=== PATIENT | female | born 1935 | race Caucasian/White ===

== ENCOUNTER 2019-06-19 00:35 | Inpatient (IN) | payer MEDICARE, OTHER, SELFPAY ==
[2019-06-20] VITALS (18 sets, daily range): BP systolic 96–125; BP diastolic 55–62; PULSE 74–102; RESP 14–22; TEMP 36.4–36.6; O2SAT 92–98
[2019-06-20] MEDS: cefTRIAXone 1,000 MG in sodium chloride 0.9% (plus) 50 ML 100 MG IV (02:29)
[2019-06-20] MEDS: ipratropium-albuterol 3 mL Neb INHALATION ×5 (04:01→23:53)
[2019-06-20 05:30] LABS: Add RBC Morph No
[2019-06-20 05:36] LABS: Basophils % 0.1 %; Hematocrit 26.2 % (37.0-47.0); Hemoglobin 7.8 g/dL (11.5-15.3); Lymphocytes # 0.4 10^3/uL (0.8-4.8); Lymphocytes % 2.7 %; Mean Corpuscular HGB Conc 29.8 g/dL (30.0-36.0); Mean Corpuscular Hemoglobin 25.7 pg (28.0-34.0); Mean Corpuscular Volume 86.5 fL (81-99); Mean Platelet Volume 10.3 fL (7.4-10.4); Monocytes # 0.3 10^3/uL (0.2-0.9); Monocytes % 2.2 %; Neutrophils # 12.8 10^3/uL (1.8-7.7); Nucleated Red Blood Cells % 0 %; Platelet Count 248 10^3/cmm (130-400); Red Blood Count 3.03 10^6/uL (4.1-5.3); Red Cell Distribution Width 14.3 % (12.1-15.1); White Blood Count 13.6 10^3/uL (4.0-10.0)
[2019-06-20 05:47] LABS: Alanine Aminotransferase 6 U/L (0-33); Albumin Level 3.5 g/dL (3.5-5.2); Alkaline Phosphatase 83 IU/L (35-105); Anion Gap 12.4 (5-19); Aspartate Amino Transferase 11 U/L (0-32); Blood Urea Nitrogen 31 mg/dL (8-23); Calcium 9.4 mg/Dl (8.8-10.2); Carbon Dioxide 35 mmol/L (22-29); Chloride 95 mmol/L (98-107); Globulin 2.3 g/dL (1.3-4.6); Glucose 149 mg/dL (74-106); Potassium 3.4 mmol/L (3.5-5.1); Sodium 139 mmol/L (136-145); Total Bilirubin 0.2 mg/dL (0.15-1.2); Total Protein 5.8 g/dL (6.6-8.7)
--- NOTE | 2019-06-20 08:02 | PM.PN ---
Subjective Subjective: Interval history: Overall patient seems to be feeling little better. No chest pain. Little decrease shortness of breath. Still coughing up some thick sputum. Medications: Reviewed: Yes Vitals/I&O/Wt Last Vital Signs Temp 97.9 F 06/20/19 03:10 Pulse 89 06/20/19 04:02 Resp 16 06/20/19 04:02 BP 96/55 06/20/19 03:10 Pulse Ox 93 06/20/19 04:02 06/19/19 06/20/19 06/20/19 22:59 06:59 14:59 Intake Total 50 / 50 Output Total 400 / 400 250 / 250 Balance -350 / -350 -250 / -250 Weight last 48 hrs Weight 57.733 kg Physical Exam Narrative: EXAM NARRATIVE: General: No acute distress. Alert. Heart: Regular rate and rhythm no new murmurs, rubs or gallops Lungs: Equal breath sounds bilaterally. Some mild expiratory wheezes. Occasional rhonchi. Abdomen: Positive bowel sounds. Nontender. Nondistended. No hepatosplenomegaly. No guarding. Extremities: No clubbing cyanosis or edema. Negative Homans Data Labs: Other Labs: All Labs last 24 hrs except CBC/BMP 06/18/19 06/19/19 06/20/19 00:36 00:54 04:55 RBC 3.03 L MCV 86.5 MCH 25.7 L MCHC 29.8 L RDW 14.3 MPV 10.3 Neut % (Auto) 94.0 Lymph % (Auto) 2.7 Banks % (Auto) 2.2 Eos % (Auto) 0.0 Baso % (Auto) 0.1 Neut # (Auto) 12.8 H Lymph # (Auto) 0.4 L Banks # (Auto) 0.3 Eos # (Auto) 0.0 Baso # (Auto) 0.0 Nucleated RBC % (a uto) 0 Nucleated RBCs # 0.0 Specimen Type ARTERIAL Sample Site LEFT RADIAL ABG pH 7.39 ABG pCO2 58.9 H ABG pO2 59.6 L ABG HCO3 35.9 H ABG Base Excess 9.6 H Marshal Test P Hematocrit 25.6 L O2 Delivery Device NC O2 Liters/Min 6.0 Specimen Drawn By HARKR Calcium Total Bilirubin AST ALT Alkaline Phosphata se Total Protein Albumin Globulin Influenza Type A A g NEGATIVE Influenza Type B A g NEGATIVE 06/20/19 04:55 RBC MCV MCH MCHC RDW MPV Neut % (Auto) Lymph % (Auto) Banks % (Auto) Eos % (Auto) Baso % (Auto) Neut # (Auto) Lymph # (Auto) Banks # (Auto) Eos # (Auto) Baso # (Auto) Nucleated RBC % (a uto) Nucleated RBCs # Specimen Type Sample Site ABG pH ABG pCO2 ABG pO2 ABG HCO3 ABG Base Excess Marshal Test Hematocrit O2 Delivery Device O2 Liters/Min Specimen Drawn By Calcium 9.4 Total Bilirubin 0.2 AST 11 ALT 6 Alkaline Phosphata se 83 Total Protein 5.8 L Albumin 3.5 Globulin 2.3 Influenza Type A A g Influenza Type B A g A&P Assessment and plan (1) Community acquired pneumonia: Patient seems to be improving. We will continue IV antibiotics for now. Repeat labs in the morning. Status: Acute Code(s): J18.9 - Pneumonia, unspecified organism (2) COPD (chronic obstructive pulmonary disease): Continues to have some wheezing. We will continue with steroids and antibiotics. Continue with breathing treatments. Status: Acute Code(s): J44.9 - Chronic obstructive pulmonary disease, unspecified (3) Anemia: This is chronic for her. Hemoglobin is dropped down to 7.8 though. Relatively asymptomatic. Continue to monitor. Hold off on anticoagulation. Status: Acute Code(s): D64.9 - Anemia, unspecified Attestations Medical Necessity Statement*: Patient is an 83-year-old female with pneumonia and COPD requiring continued inpatient monitoring and treatment with IV treatments.. Coding Level of Care Code Acute Parking Lot Laborer for [facility] Diagnoses Community acquired pneumonia J18.9 COPD (chronic obstructive pulmonary disease) J44.9 Anemia D64.9
[2019-06-20] MEDS: ferrous sulfate EC 325 mg Tablet PO ×3 (09:36→17:03)
[2019-06-20] MEDS: FUROsemide 10 mg/mL SDV 4mL 40 MG IVP ×2 (09:36→16:56)
[2019-06-20] MEDS: pantoprazole DR 40 mg Tablet PO (09:37)
[2019-06-20] MEDS: cholecalciferol (vitamin D3) 1,000 unit Tablet 1000 UNIT PO (09:37)
[2019-06-20] MEDS: metoprolol tartrate 25 mg Tablet PO ×2 (09:37→17:03)
[2019-06-20] MEDS: guaiFENesin 600 mg Tablet 1200 MG PO ×2 (09:37→17:02)
[2019-06-20] MEDS: cetirizine 10 mg Tablet PO (09:37)
[2019-06-20] MEDS: dilTIAZem ER (24HR) 120 mg Capsule PO (09:38)
[2019-06-20] MEDS: azithromycin 500 MG in sodium chloride 0.9% 250 ML 250 MG IV (09:46)
[2019-06-20] MEDS: fluticasone nasal spray 16gm Btl 2 SPRAY NASAL (09:46)
--- NOTE | 2019-06-20 13:17 | PC.CHAP ---
Pastoral Care Encounter/Spiritual Assessment Type of Contact [] Declined backhoe operator visit [x] Patient/Family/Request visit [] Outpatient visit [] Follow-up visit [] Physician referral [] Code/Alert [x] Routine visit [] Staff referral [] Actively dying [] Patient sleeping [] Family support [] [] Out of room [] Palliative care [] [] Receiving care in room [] Pre-surgical visit [] Trauma [] Long length of stay [] ICU visit [x] Other:2 family members Relational/Emotional Strength [x] Patient feels connected with others/family/visitors/staff [] Distress [] Loneliness/isolation [] Abandonment Spirituality of Patient [x] Person of Sabiha [x] Attends Sabianist of their Sabiha [] Believes in Prayer [] Reads Bible or Buddhist materials [] There are Spiritual issues to be addressed Graduate Student Instructor Interventions [x] Prayer [x] Active listening [x] Non-anxious presence [x] Spiritual/emotional support [] Crisis/trauma care [] Spiritual counseling [] Bereavement support [] Provided bereavement packet [] Provided Bible/devotional materials [] Provided toy/stuffed animal, coloring book to patient or family member [x] Completed spiritual assessment [] Provided Communion [] Anointing/[place] [] Salvation [] Other: Impact on Illness or Injury [] Angry [] Fearful [] Anxious [] Often cries x Exhaustion [] Unable to work [] Unable to attend restorationist [] Unable to walk/stand [] Unable to read [] Unable to drive [] Unable to eat/drink [] Unable to sleep [] Unable to be with family [] Other: Summary has no probems ready to go home Time spent with patient 8 min
[2019-06-21] VITALS (19 sets, daily range): BP systolic 98–142; BP diastolic 51–68; PULSE 80–100; RESP 14–24; TEMP 36.3–36.8; O2SAT 88–99
[2019-06-21] MEDS: FUROsemide 10 mg/mL SDV 4mL 40 MG IVP (00:07)
[2019-06-21] MEDS: cefTRIAXone 1,000 MG in sodium chloride 0.9% (plus) 50 ML 100 MG IV (00:18)
[2019-06-21] MEDS: cefTRIAXone 1,000 mg SDV 1000 MG (00:30)
[2019-06-21] MEDS: ipratropium-albuterol 3 mL Neb INHALATION ×4 (02:48→23:27)
--- NOTE | 2019-06-21 06:55 | XR_ITS ---
WS: [id number] PROCEDURE: XR chest 2V* 16115 CLINICAL INFORMATION: pneumonia COMPARISON: FINDINGS: Heart: Cardiomegaly. Aortic calcification. Tortuous thoracic aorta. Lungs: Chronic emphysematous changes. Stable interstitial fibrosis in both lungs. Small right pleural effusion slightly increased since June 19, 2019. No focal pneumonia. Bones: Osteopenia. Thoracic kyphosis. Aortic calcification. XR/XR chest 2V* 14281 IMPRESSION: 1. Stable chronic interstitial fibrosis. 2. Small right pleural effusion increased from June 19, 2019. 3. No focal pneumonia. 4. Stable cardiomegaly.
--- NOTE | 2019-06-21 07:00 | PM.PN ---
Subjective Subjective: Interval history: Overall she does not feel like she is improving much. Still coughing up a lot of sputum. Very thick. No fevers though. No chest pain. Vitals/I&O/Wt Last Vital Signs Temp 98.3 F 06/21/19 04:00 Pulse 100 06/21/19 04:00 Resp 22 H 06/21/19 04:00 BP 98/51 06/21/19 04:00 Pulse Ox 88 L 06/21/19 04:00 06/20/19 06/21/19 06/21/19 22:59 06:59 14:59 Intake Total 480 / 720 300 / 1020 Output Total 250 / 500 500 / 1000 Balance 230 / 220 -200 / 20 Weight last 48 hrs Weight 57.788 kg Weight 57.733 kg Physical Exam Const: COMMON NORMALS: no apparent distress, alert and well nourished GENERAL APPEARANCE: comfortable HENMT: COMMON NORMALS: normocephalic HEAD & SCALP: normocephalic NOSE: nares normal MOUTH: oral and palatal mucosa normal THROAT: posterior oropharynx normal Resp: COMMON NORMALS: normal respiratory effort and no retractions AUSCULTATION: no crackles, rhonchi and wheezes Cardio: COMMON NORMALS: regular rate, regular rhythm, no gallops, no murmurs and no rub RATE: regular rate RHYTHM: regular rhythm GI: COMMON NORMALS: normal to inspection, nondistended, normoactive bowel sounds, non-tender, no hepatosplenomegaly and no masses PALPATION: Yes no hepatosplenomegaly Extremity: COMMON NORMALS: normal to inspection, normal capillary refill, no clubbing, cyanosis or edema and no calf tenderness Neuro: SENSORIUM/ORIENTATION: Yes alert A&P Assessment and plan (1) Community acquired pneumonia: Not much improvement since yesterday. We will add Mucinex today. Encouraged her use of incentive spirometer and flutter valve. Try to get her up more today. Continue IV antibiotics. Status: Acute Code(s): J18.9 - Pneumonia, unspecified organism (2) COPD (chronic obstructive pulmonary disease): Continues to have some wheezing. We will continue with steroids and antibiotics. Continue with breathing treatments. Status: Acute Code(s): J44.9 - Chronic obstructive pulmonary disease, unspecified (3) Anemia: Acute on chronic. This is chronic for her. Hemoglobin is dropped down to 7.8 though. Relatively asymptomatic. Continue to monitor. Hold off on anticoagulation. Status: Acute Code(s): D64.9 - Anemia, unspecified Attestations Medical Necessity Statement*: Patient has acute medical problems that require continued inpatient IV treatments and monitoring. Coding Level of Care Code Acute Computer Aide [facility] Diagnoses Community acquired pneumonia J18.9 COPD (chronic obstructive pulmonary disease) J44.9 Anemia D64.9
[2019-06-21] MEDS: azithromycin 500 MG in sodium chloride 0.9% 250 ML 250 MG IV (08:28)
[2019-06-21] MEDS: guaiFENesin 600 mg Tablet 1200 MG PO ×2 (08:32→18:00)
[2019-06-21] MEDS: pantoprazole DR 40 mg Tablet PO (08:32)
[2019-06-21] MEDS: cholecalciferol (vitamin D3) 1,000 unit Tablet 1000 UNIT PO (08:32)
[2019-06-21] MEDS: cetirizine 10 mg Tablet PO (08:33)
[2019-06-21] MEDS: ferrous sulfate EC 325 mg Tablet PO ×3 (08:33→18:00)
[2019-06-21] MEDS: metoprolol tartrate 25 mg Tablet PO ×2 (08:33→18:00)
[2019-06-21] MEDS: dilTIAZem ER (24HR) 120 mg Capsule PO (08:33)
[2019-06-21] MEDS: fluticasone nasal spray 16gm Btl 2 SPRAY NASAL (08:34)
[2019-06-21] MEDS: saline nasal spray 44mL Btl 1 SPRAY NASAL (08:34)
[2019-06-21 09:07] LABS: Basophils % 0.2 %; Hematocrit 30.3 % (37.0-47.0); Hemoglobin 8.8 g/dL (11.5-15.3); Lymphocytes # 0.2 10^3/uL (0.8-4.8); Lymphocytes % 1.2 %; Mean Corpuscular Hemoglobin 26.6 pg (28.0-34.0); Mean Corpuscular Volume 91.5 fL (81-99); Mean Platelet Volume 9.9 fL (7.4-10.4); Monocytes # 0.4 10^3/uL (0.2-0.9); Monocytes % 2.2 %; Neutrophils # 15.6 10^3/uL (1.8-7.7); Neutrophils % 93.9 %; Nucleated Red Blood Cells % 0 %; Platelet Count 330 10^3/cmm (130-400); Red Blood Count 3.31 10^6/uL (4.1-5.3); Red Cell Distribution Width 14.7 % (12.1-15.1); White Blood Count 16.7 10^3/uL (4.0-10.0)
[2019-06-21 09:14] LABS: Add RBC Morph No
[2019-06-21 09:40] LABS: Alanine Aminotransferase 5 U/L (0-33); Albumin Level 3.6 g/dL (3.5-5.2); Alkaline Phosphatase 86 IU/L (35-105); Aspartate Amino Transferase 12 U/L (0-32); Blood Urea Nitrogen 31 mg/dL (8-23); Calcium 9.7 mg/Dl (8.8-10.2); Carbon Dioxide 32 mmol/L (22-29); Chloride 94 mmol/L (98-107); Globulin 2.5 g/dL (1.3-4.6); Glucose 218 mg/dL (74-106); Sodium 141 mmol/L (136-145); Total Bilirubin 0.2 mg/dL (0.15-1.2); Total Protein 6.1 g/dL (6.6-8.7)
[2019-06-22] VITALS (16 sets, daily range): BP systolic 126–153; BP diastolic 58–67; PULSE 85–114; RESP 16–20; TEMP 36.4–37.1; O2SAT 88–97; BMI 24.6
[2019-06-22] MEDS: cefTRIAXone 1,000 MG in sodium chloride 0.9% (plus) 50 ML 100 MG IV (00:07)
[2019-06-22] MEDS: FUROsemide 10 mg/mL SDV 4mL 40 MG IVP ×4 (00:07→23:34)
[2019-06-22] MEDS: ipratropium-albuterol 3 mL Neb INHALATION ×4 (04:08→20:06)
[2019-06-22 05:37] LABS: Hematocrit 26.9 % (37.0-47.0); Hemoglobin 7.9 g/dL (11.5-15.3); Lymphocytes # 0.3 10^3/uL (0.8-4.8); Lymphocytes % 2.7 %; Mean Corpuscular HGB Conc 29.4 g/dL (30.0-36.0); Mean Corpuscular Hemoglobin 25.2 pg (28.0-34.0); Mean Corpuscular Volume 85.9 fL (81-99); Mean Platelet Volume 9.8 fL (7.4-10.4); Monocytes # 0.2 10^3/uL (0.2-0.9); Monocytes % 2.2 %; Neutrophils # 8.9 10^3/uL (1.8-7.7); Neutrophils % 91.6 %; Nucleated Red Blood Cells % 0 %; Platelet Count 308 10^3/cmm (130-400); Red Blood Count 3.13 10^6/uL (4.1-5.3); Red Cell Distribution Width 14.9 % (12.1-15.1); White Blood Count 9.7 10^3/uL (4.0-10.0)
[2019-06-22 05:56] LABS: Alanine Aminotransferase 8 U/L (0-33); Albumin Level 3.7 g/dL (3.5-5.2); Alkaline Phosphatase 78 IU/L (35-105); Anion Gap 14.3 (5-19); Aspartate Amino Transferase 10 U/L (0-32); Blood Urea Nitrogen 30 mg/dL (8-23); Calcium 9.5 mg/Dl (8.8-10.2); Carbon Dioxide 36 mmol/L (22-29); Chloride 97 mmol/L (98-107); Globulin 1.9 g/dL (1.3-4.6); Glucose 164 mg/dL (74-106); Potassium 3.3 mmol/L (3.5-5.1); Sodium 144 mmol/L (136-145); Total Bilirubin 0.2 mg/dL (0.15-1.2); Total Protein 5.6 g/dL (6.6-8.7)
[2019-06-22] MEDS: metoprolol tartrate 25 mg Tablet PO ×2 (09:35→18:47)
[2019-06-22] MEDS: cetirizine 10 mg Tablet PO (09:35)
[2019-06-22] MEDS: guaiFENesin 600 mg Tablet 1200 MG PO ×2 (09:35→18:46)
[2019-06-22] MEDS: dilTIAZem ER (24HR) 120 mg Capsule PO (09:35)
[2019-06-22] MEDS: pantoprazole DR 40 mg Tablet PO (09:36)
[2019-06-22] MEDS: cholecalciferol (vitamin D3) 1,000 unit Tablet 1000 UNIT PO (09:36)
[2019-06-22] MEDS: ferrous sulfate EC 325 mg Tablet PO ×3 (09:53→18:46)
[2019-06-22] MEDS: fluticasone nasal spray 16gm Btl 2 SPRAY NASAL (09:54)
[2019-06-22] MEDS: azithromycin 500 MG in sodium chloride 0.9% 250 ML 250 MG IV (10:15)
--- NOTE | 2019-06-22 13:36 | PC.RESP ---
Pt given information for Pulmonary Rehab.
--- NOTE | 2019-06-22 14:25 | PM.PN ---
Subjective Subjective: Interval history: She is improved some since yesterday. Still a bit short of breath and very weak. She is agreeable to going to rehab upon discharge. No fevers or chills. Medications: Reviewed: Yes Vitals/I&O/Wt Last Vital Signs Temp 97.8 F 06/22/19 12:00 Pulse 91 06/22/19 12:00 Resp 18 06/22/19 12:00 BP 129/67 06/22/19 12:00 Pulse Ox 94 06/22/19 12:00 06/21/19 06/22/19 06/22/19 22:59 06:59 14:59 Intake Total 360 / 1570 50 / 1620 600 / 600 Output Total 400 / 400 300 / 700 300 / 300 Balance -40 / 1170 -250 / 920 300 / 300 Weight last 48 hrs Weight 63.049 kg Weight 63.321 kg Weight 57.788 kg Physical Exam Narrative: EXAM NARRATIVE: General: No acute distress. Alert. Heart: Regular rate and rhythm no new murmurs, rubs or gallops Lungs: Equal breath sounds bilaterally. Some mild expiratory wheezes. Occasional rhonchi. Abdomen: Positive bowel sounds. Nontender. Nondistended. No hepatosplenomegaly. No guarding. Extremities: No clubbing cyanosis or edema. Negative Homans A&P Assessment and plan (1) Community acquired pneumonia: Some but overall not much improvement since yesterday. Continue with IV antibiotics and IV steroids. Anticipate another couple of days with IV treatments. We will plan for discharge to rehab when she is ready. Status: Acute Code(s): J18.9 - Pneumonia, unspecified organism (2) COPD (chronic obstructive pulmonary disease): Continues to have some wheezing. We will continue with steroids and antibiotics. Continue with breathing treatments. Status: Acute Code(s): J44.9 - Chronic obstructive pulmonary disease, unspecified (3) Anemia: Acute on chronic. This is chronic for her. Hemoglobin is dropped down to 7.8 though. Relatively asymptomatic. Continue to monitor. Hold off on anticoagulation. Status: Acute Code(s): D64.9 - Anemia, unspecified Attestations Medical Necessity Statement*: Patient has pneumonia and COPD requiring inpatient IV treatments and monitoring. Coding Level of Care Code Acute Restorative Art Embalmer for [facility] Iesha Diagnoses Community acquired pneumonia J18.9 COPD (chronic obstructive pulmonary disease) J44.9 Anemia D64.9
[2019-06-22] MEDS: cefTRIAXone 1,000 MG in sodium chloride 0.9% (plus) 50 ML 50 MG IV (23:41)
[2019-06-23] VITALS (17 sets, daily range): BP systolic 133–153; BP diastolic 61–71; PULSE 82–95; RESP 14–19; TEMP 36.6–36.9; O2SAT 90–98; BMI 24.6
[2019-06-23] MEDS: ipratropium-albuterol 3 mL Neb INHALATION ×6 (00:18→20:09)
[2019-06-23] MEDS: FUROsemide 10 mg/mL SDV 4mL 40 MG IVP (07:07)
[2019-06-23] MEDS: guaiFENesin 600 mg Tablet 1200 MG PO ×2 (08:27→17:48)
[2019-06-23] MEDS: cholecalciferol (vitamin D3) 1,000 unit Tablet 1000 UNIT PO (08:27)
[2019-06-23] MEDS: pantoprazole DR 40 mg Tablet PO (08:28)
[2019-06-23] MEDS: metoprolol tartrate 25 mg Tablet PO ×2 (08:28→17:49)
[2019-06-23] MEDS: dilTIAZem ER (24HR) 120 mg Capsule PO (08:29)
[2019-06-23] MEDS: cetirizine 10 mg Tablet PO (08:29)
[2019-06-23] MEDS: ferrous sulfate EC 325 mg Tablet PO ×3 (08:29→17:48)
[2019-06-23] MEDS: azithromycin 500 MG in sodium chloride 0.9% 250 ML 250 MG IV (08:40)
[2019-06-23] MEDS: fluticasone nasal spray 16gm Btl 2 SPRAY NASAL (08:41)
--- NOTE | 2019-06-23 13:28 | PM.PN ---
Subjective Subjective: Interval history: Michelle reports that she feels a little bit better. Is willing to go to rehabilitation. Still coughing. Medications: Reviewed: Yes Vitals/I&O/Wt Last Vital Signs Temp 97.8 F 06/23/19 07:58 Pulse 84 06/23/19 11:12 Resp 18 06/23/19 11:07 BP 143/70 06/23/19 07:58 Pulse Ox 91 06/23/19 11:07 06/22/19 06/23/19 06/23/19 22:59 06:59 14:59 Intake Total 240 / 840 300 / 1140 850 / 850 Output Total 900 / 1200 300 / 1500 575 / 575 Balance -660 / -360 0 / -360 275 / 275 Weight last 48 hrs Weight 63.049 kg Weight 63.049 kg Physical Exam Narrative: EXAM NARRATIVE: General exam is a weak appearing white female in no apparent distress Cardiovascular regular rate and rhythm with a 2/6 systolic murmur Lungs a few bibasilar expiratory wheezes and rhonchi Abdomen is soft with positive bowel sounds Extremities no cyanosis clubbing or edema A&P Assessment and plan (1) Community acquired pneumonia: Improving. Will need rehab on discharge. Continue Rocephin and azithromycin Status: Acute Code(s): J18.9 - Pneumonia, unspecified organism (2) COPD (chronic obstructive pulmonary disease): Improving. Continue nebulized treatments. Reduce steroids. Appears to have some fibrosis on x-ray as well. Status: Acute Code(s): J44.9 - Chronic obstructive pulmonary disease, unspecified (3) Anemia: Chronic. Repeat hemoglobin tomorrow . No anticoagulation secondary to anemia Status: Acute Code(s): D64.9 - Anemia, unspecified (4) Hypertension: Stable Status: Acute Code(s): I10 - Essential (primary) hypertension (5) Peripheral vascular disease: Stable Status: Acute Code(s): I73.9 - Peripheral vascular disease, unspecified Additional A&P Information Additional A&P Information: History of pulmonary embolism Attestations Medical Necessity Statement*: Needs continued hospitalization for IV antibiotics secondary to pneumonia Coding Level of Care Code Acute Drainage Design Coordinator for [facility] Diagnoses Community acquired pneumonia J18.9 COPD (chronic obstructive pulmonary disease) J44.9 Anemia D64.9 Hypertension I10 Peripheral vascular disease I73.9
[2019-06-23] MEDS: FUROsemide 40 mg Tablet PO (17:48)
[2019-06-24] VITALS (19 sets, daily range): BP systolic 129–150; BP diastolic 54–68; PULSE 74–108; RESP 16–22; TEMP 36.7–37.2; O2SAT 90–98
[2019-06-24] MEDS: ipratropium-albuterol 3 mL Neb INHALATION ×7 (00:06→23:36)
[2019-06-24] MEDS: cefTRIAXone 1,000 MG in sodium chloride 0.9% (plus) 50 ML 100 MG IV (00:43)
[2019-06-24 05:49] LABS: Basophils % 0.2 %; Hematocrit 28.2 % (37.0-47.0); Hemoglobin 8.3 g/dL (11.5-15.3); Lymphocytes # 0.4 10^3/uL (0.8-4.8); Lymphocytes % 3.9 %; Mean Corpuscular HGB Conc 29.4 g/dL (30.0-36.0); Mean Corpuscular Hemoglobin 25.2 pg (28.0-34.0); Mean Corpuscular Volume 85.5 fL (81-99); Mean Platelet Volume 9.5 fL (7.4-10.4); Monocytes # 0.4 10^3/uL (0.2-0.9); Monocytes % 3.3 %; Neutrophils # 9.3 10^3/uL (1.8-7.7); Neutrophils % 81.6 %; Nucleated Red Blood Cells % 0 %; Platelet Count 342 10^3/cmm (130-400); Red Cell Distribution Width 15.2 % (12.1-15.1); White Blood Count 11.4 10^3/uL (4.0-10.0)
[2019-06-24 06:06] LABS: Anion Gap 12.1 (5-19); Blood Urea Nitrogen 34 mg/dL (8-23); Calcium 9.3 mg/Dl (8.8-10.2); Carbon Dioxide 39 mmol/L (22-29); Chloride 97 mmol/L (98-107); Glucose 163 mg/dL (74-106); Potassium 4.1 mmol/L (3.5-5.1); Sodium 144 mmol/L (136-145)
[2019-06-24 06:25] LABS: Slide Review Slide Review Perform
[2019-06-24] MEDS: azithromycin 500 MG in sodium chloride 0.9% 250 ML 250 MG IV (09:32)
[2019-06-24] MEDS: ferrous sulfate EC 325 mg Tablet PO ×3 (09:34→18:55)
[2019-06-24] MEDS: cetirizine 10 mg Tablet PO (09:34)
[2019-06-24] MEDS: FUROsemide 40 mg Tablet PO ×2 (09:34→15:42)
[2019-06-24] MEDS: fluticasone nasal spray 16gm Btl 2 SPRAY NASAL (09:35)
[2019-06-24] MEDS: guaiFENesin 600 mg Tablet 1200 MG PO ×2 (09:35→18:55)
[2019-06-24] MEDS: cholecalciferol (vitamin D3) 1,000 unit Tablet 1000 UNIT PO (09:35)
[2019-06-24] MEDS: metoprolol tartrate 25 mg Tablet PO ×2 (09:35→18:55)
[2019-06-24] MEDS: pantoprazole DR 40 mg Tablet PO (09:35)
[2019-06-24] MEDS: dilTIAZem ER (24HR) 120 mg Capsule PO (09:35)
--- NOTE | 2019-06-24 09:52 | PC.SOCIAL ---
Pg 2 IMM Explained to pt & daughter Pg 2 IMM. Pt & daughter verbally understands & signed. Provided a copy to pt & left on bedside table. Signed, dated, & timed, then placed in chart.
--- NOTE | 2019-06-24 10:11 | P.PN_ITS ---
Subjective Subjective: Interval history: Michelle reports she feels a little bit better. Still coughing and wheezing quite a bit. Relates she has more energy. Medications: Reviewed: Yes Vitals/I&O/Wt Last Vital Signs Temp 98.1 F 06/24/19 08:10 Pulse 108 H 06/24/19 08:10 Resp 22 H 06/24/19 08:10 BP 150/68 06/24/19 08:10 Pulse Ox 90 06/24/19 08:10 06/23/19 06/24/19 06/24/19 22:59 06:59 14:59 Intake Total 250 / 1100 50 / 1150 360 / 360 Output Total 700 / 1275 300 / 1575 Balance -450 / -175 -250 / -425 360 / 360 Weight last 48 hrs Weight 63.049 kg Physical Exam Narrative: EXAM NARRATIVE: General exam no apparent distress Cardiovascular regular rate and rhythm with a 3/6 systolic murmur Lungs a few faint expiratory wheezes but improved aeration from yesterday Abdomen is soft with positive bowel sounds Extremities no cyanosis clubbing or edema A&P Assessment and plan (1) Community acquired pneumonia: Improving. Will need rehab on discharge. Continue Rocephin and azithromycin. I suspect she can transition [facility] tomorrow Status: Acute Code(s): J18.9 - Pneumonia, unspecified organism (2) COPD (chronic obstructive pulmonary disease): Improving. Continue nebulized treatments. Discontinue IV steroids today. Change to prednisone.. Appears to have some fibrosis on x-ray as well. Status: Acute Code(s): J44.9 - Chronic obstructive pulmonary disease, unspecified (3) Anemia: Chronic. Repeat hemoglobin stable. No need for laboratory tomorrow Status: Acute Code(s): D64.9 - Anemia, unspecified (4) Hypertension: Stable Status: Acute Code(s): I10 - Essential (primary) hypertension (5) Peripheral vascular disease: Stable Status: Acute Code(s): I73.9 - Peripheral vascular disease, unspecified Additional A&P Information Additional A&P Information: History of pulmonary embolism Attestations Medical Necessity Statement*: Needs continued hospitalization for pulmonary toilet and IV antibiotics secondary to pneumonia. Coding Level of Care Code Acute Diagnostic Radiologist for [facility] Diagnoses Community acquired pneumonia J18.9 COPD (chronic obstructive pulmonary disease) J44.9 Anemia D64.9 Hypertension I10 Peripheral vascular disease I73.9
[2019-06-25] VITALS (17 sets, daily range): BP systolic 105–135; BP diastolic 54–69; PULSE 66–90; RESP 16–20; TEMP 36.6–36.8; O2SAT 3–99
[2019-06-25] MEDS: cefTRIAXone 1,000 MG in sodium chloride 0.9% (plus) 50 ML 100 MG IV ×2 (00:41→23:27)
[2019-06-25] MEDS: ipratropium-albuterol 3 mL Neb INHALATION ×6 (03:20→23:13)
[2019-06-25] MEDS: FUROsemide 40 mg Tablet PO ×2 (09:05→17:42)
[2019-06-25] MEDS: ferrous sulfate EC 325 mg Tablet PO ×3 (09:05→17:42)
[2019-06-25] MEDS: azithromycin 500 MG in sodium chloride 0.9% 250 ML 250 MG IV (09:05)
[2019-06-25] MEDS: dilTIAZem ER (24HR) 120 mg Capsule PO (09:06)
[2019-06-25] MEDS: cholecalciferol (vitamin D3) 1,000 unit Tablet 1000 UNIT PO (09:06)
[2019-06-25] MEDS: metoprolol tartrate 25 mg Tablet PO ×2 (09:06→17:42)
[2019-06-25] MEDS: pantoprazole DR 40 mg Tablet PO (09:06)
[2019-06-25] MEDS: cetirizine 10 mg Tablet PO (09:06)
[2019-06-25] MEDS: guaiFENesin 600 mg Tablet 1200 MG PO ×2 (09:06→17:42)
[2019-06-25] MEDS: predniSONE 20 mg Tablet 40 MG PO (09:06)
[2019-06-25] MEDS: fluticasone nasal spray 16gm Btl 2 SPRAY NASAL (09:08)
--- NOTE | 2019-06-25 11:28 | P.PN_ITS ---
Subjective Subjective: Interval history: Michelle reports she feels a little bit better. Still coughing and wheezing quite a bit. Relates she has more energy. Still very weak still. Medications: Reviewed: Yes Vitals/I&O/Wt Last Vital Signs Temp 98.3 F 06/25/19 07:46 Pulse 87 06/25/19 08:20 Resp 16 06/25/19 08:12 BP 135/64 06/25/19 07:46 Pulse Ox 95 06/25/19 08:12 06/24/19 06/25/19 06/25/19 22:59 06:59 14:59 Intake Total 480 / 1690 50 / 1740 720 / 720 Output Total 350 / 950 500 / 1450 Balance 130 / 740 -450 / 290 720 / 720 Weight last 48 hrs Weight 57.72 kg Weight 57.72 kg Weight 63.503 kg Physical Exam Narrative: EXAM NARRATIVE: General: No acute distress. Alert. Heart: Regular rate and rhythm no new murmurs, rubs or gallops Lungs: Equal breath sounds bilaterally. Some mild expiratory wheezes. Occasional rhonchi. Abdomen: Positive bowel sounds. Nontender. Nondistended. No hepatosplenomegaly. No guarding. Extremities: No clubbing cyanosis or edema. Negative Homans A&P Assessment and plan (1) Community acquired pneumonia: She is continued to improve. Still not quite ready for discharge today though. Still wheezing quite a bit. Coughing up some sputum. Has not been doing the chest vest. We will order that again today. Anticipate probably discharge to rehab tomorrow.. Status: Acute Code(s): J18.9 - Pneumonia, unspecified organism (2) COPD (chronic obstructive pulmonary disease): Continues to have some wheezing. We will continue with steroids and antibiotics. Continue with breathing treatments. Status: Acute Code(s): J44.9 - Chronic obstructive pulmonary disease, unspecified (3) Anemia: Acute on chronic. This is chronic for her. Hemoglobin is dropped down to 7.8 though. Relatively asymptomatic. Continue to monitor. Hold off on anticoagulation. Status: Acute Code(s): D64.9 - Anemia, unspecified Attestations Medical Necessity Statement*: 83-year-old female with pneumonia and COPD requiring continued inpatient treatment with IV medications. Coding Level of Care Code Acute Patient Relations Coordinator for [facility] Diagnoses Community acquired pneumonia J18.9 COPD (chronic obstructive pulmonary disease) J44.9 Anemia D64.9
--- NOTE | 2019-06-25 14:07 | PC.CHAP ---
Pastoral Care Encounter/Spiritual Assessment Type of Contact [] Declined rotating equipment specialist visit [] Patient/Family/Request visit [] Outpatient visit [] Follow-up visit [] Physician referral [] Code/Alert [x] Routine visit [] Staff referral [] Actively dying [] Patient sleeping [] Family support [] [] Out of room [] Palliative care [] [] Receiving care in room [] Pre-surgical visit [] Trauma [] Long length of stay [] ICU visit [] Other: Relational/Emotional Strength [x] Patient feels connected with others/family/visitors/staff [] Distress [] Loneliness/isolation [] Abandonment Spirituality of Patient [x] Person of Sabiha [] Attends Orthodoxy of their Sabiha [x] Believes in Prayer [] Reads Bible or Quaker materials [] There are Spiritual issues to be addressed Scientific Publications Editor Interventions [x] Prayer [x] Active listening [x] Non-anxious presence [x] Spiritual/emotional support [] Crisis/trauma care [] Spiritual counseling [] Bereavement support [] Provided bereavement packet [] Provided Bible/devotional materials [] Provided toy/stuffed animal, coloring book to patient or family member [x] Completed spiritual assessment [] Provided Communion [] Anointing/[place] [] Salvation [] Other: Impact on Illness or Injury [] Angry [] Fearful [] Anxious [] Often cries [] Exhaustion [] Unable to work [] Unable to attend orthodoxy [] Unable to walk/stand [] Unable to read [] Unable to drive [] Unable to eat/drink [] Unable to sleep [] Unable to be with family [x] Other: Patient has a hard time hearing Summary Patient required me to be very close when I spoke and prayed due to her having a hard time hearing. She stated that she had alot fluid in her ears as a part of her current illness. Patient visited by Scientific Publications Editor Moses Max Time spent with patient 7 minutes
--- NOTE | 2019-06-25 19:20 | PC.NURSE ---
INTRODUCTION OF STAFF AND REPORT RECEIVED, AIDET.
[2019-06-26] VITALS (10 sets, daily range): BP systolic 116–154; BP diastolic 60–69; PULSE 68–81; RESP 16–18; TEMP 36.6–36.8; O2SAT 92–96
--- NOTE | 2019-06-26 06:55 | P.DS_ITS ---
Discharge Providers Date of Admission: 06/19/19 00:35 Date of Discharge: 06/26/19 Attending Provider at Admission: Lidai Maharaj MD Attending Provider at Discharge: Cain Kuhn MD Primary Care Provider: Cain Kuhn MD Diagnoses at Discharge Discharge Diagnosis (1) Community acquired pneumonia: Status: Acute (2) COPD (chronic obstructive pulmonary disease): Status: Acute (3) Anemia: Status: Acute Reason for Visit Reason for Visit: Reason For Visit: Copd Hospital Course Hospital Course: Patient was admitted to the hospital for her COPD exacerbation and pneumonia. She had chronic anemia with a hemoglobin running around 8. She received IV antibiotics IV steroids and breathing treatments. Patient continued to do well with these. She slowly recovered over the next few days. Oxygen requirements had went up to 6 L but eventually was down to 3 by the time of discharge. Wheezing improved significantly. Patient was still very weak though and is being discharged to rehab presumably for a week or 2 until she is better to go home. Physical Exam Narrative: EXAM NARRATIVE: General: No acute distress. Alert. Heart: Regular rate and rhythm no new murmurs, rubs or gallops Lungs: Equal breath sounds bilaterally. Some mild expiratory wheezes. Occasional rhonchi. Abdomen: Positive bowel sounds. Nontender. Nondistended. No hepatosplenomegaly. No guarding. Extremities: No clubbing cyanosis or edema. Negative Homans Discharge Data Data Completed and Pending: Completed Studies During Hospitalization Category Date Time Status XR chest 2V* 7104 6 Routine Exams 06/21/19 06:55 Completed Vitals: Last Vital Signs Temp 98.2 F 06/26/19 04:00 Pulse 78 06/26/19 04:00 Resp 18 06/26/19 04:00 BP 120/63 06/26/19 04:00 Pulse Ox 94 06/26/19 04:00 Discharge Plan Discharge Patient Disposition: Rehab Fac w Plan Readm Condition: Stable Prescriptions: New acetaminophen 500 mg Tablet 1,000 mg PO Q6H PRN (Reason: Mild Pain Or Increase Temp) Qty: 30 RF: 0 cetirizine 10 mg Tablet 10 mg PO DAILY Qty: 1 RF: 0 fluticasone propionate 50 mcg/actuation [place],Suspension 2 spray nasal DAILY Qty: 1 RF: 0 ipratropium-albuterol 0.5 mg-3 mg(2.5 mg base)/3 mL Solution For Nebulization 3 ml inhalation Q4H.RESPIRATORY Qty: 60 RF: 0 guaifenesin [Mucinex] 600 mg Tablet Extended Release 12hr 1,200 mg PO BID Qty: 60 RF: 0 sodium chloride [Saline Mist] 0.65 % Aerosol,[place] 1 spray nasal PRN PRN (Reason: Dryness) Qty: 1 RF: 0 potassium chloride 10 mEq Tablet Extended Release 40 meq PO DAILY Qty: 30 RF: 0 prednisone 20 mg Tablet 20 mg PO DAILY Qty: 20 RF: 0 Continued furosemide 40 mg tablet 40 mg PO BID RF: 0 pentoxifylline 400 mg tablet extended release 400 mg PO TID RF: 0 pantoprazole 40 mg tablet,delayed release (DR/EC) 40 mg PO DAILY RF: 0 Cartia XT 120 mg capsule,extended release 24hr 120 mg PO DAILY RF: 0 metoprolol tartrate 25 mg tablet 25 mg PO BID RF: 0 ferrous sulfate 325 mg (65 mg iron) Tablet 325 mg PO TIDWM RF: 0 cholecalciferol (vitamin D3) 1,000 unit Capsule 1,000 unit PO DAILY RF: 0 Discharge Orders: Discharge Order (Routine); Ordered 06/26/19 Ordered By: Cain Kuhn Referrals: Cain Kuhn MD [Primary Care Provider] - 1-3 days Discharge Diet: Low Salt Discharge Activity: As per PT/OT instructions Activity Restrictions/Additional Instructions: -Discharged to rehab with Dr. Kuhn attending physician at [facility] -Call if increasing shortness of breath cough or fevers -Use oxygen at 3 L per nasal cannula may wean down to 2 L as tolerated. -Physical therapy and Occupational Therapy to assess and treat -Please do wound care to her toe per Dr. Ventura's instructions -Follow-up with Dr. Kuhn at the end of this week in the clinic. Discharge Attestations Time Spent in Discharge Care*: greater than 30 min Quality Metrics Clinical Quality Measures During this hospital stay, did patient experience: None Coding Level of Care Code Acute Contract Administration Coordinator for [facility] Diagnoses Community acquired pneumonia J18.9 COPD (chronic obstructive pulmonary disease) J44.9 Anemia D64.9
[2019-06-26] MEDS: ipratropium-albuterol 3 mL Neb INHALATION ×2 (07:35→11:46)
[2019-06-26] MEDS: fluticasone nasal spray 16gm Btl 2 SPRAY NASAL (10:04)
[2019-06-26] MEDS: guaiFENesin 600 mg Tablet 1200 MG PO (10:05)
[2019-06-26] MEDS: cholecalciferol (vitamin D3) 1,000 unit Tablet 1000 UNIT PO (10:05)
[2019-06-26] MEDS: dilTIAZem ER (24HR) 120 mg Capsule PO (10:07)
[2019-06-26] MEDS: predniSONE 20 mg Tablet 40 MG PO (10:07)
[2019-06-26] MEDS: metoprolol tartrate 25 mg Tablet PO (10:07)
[2019-06-26] MEDS: cetirizine 10 mg Tablet PO (10:08)
[2019-06-26] MEDS: pantoprazole DR 40 mg Tablet PO (10:09)
--- NOTE | 2019-06-30 16:03 | PC.SOCIAL ---
Pt qualified for [facility] on 06/25/19. Unable to chart under assessment.
== END 2019-06-26 12:43 | disposition skilled nursing facility (03) | DRG 190 ==
PROVIDERS: Internal Medicine; Admitting Provider Internal Medicine; Emergency Provider Emergency Medicine; Family Provider Family Medicine; PCP Family Medicine; Referring Provider Family Medicine; Visit Provider Family Medicine
DX: J44.1 Chronic obstructive pulmonary disease with (acute) exacerbation (principal); J18.9 Pneumonia, unspecified organism; D64.9 Anemia, unspecified; I10 Essential (primary) hypertension; E78.5 Hyperlipidemia, unspecified; Z99.81 Dependence on supplemental oxygen; I73.9 Peripheral vascular disease, unspecified; Z95.820 Peripheral vascular angioplasty status with implants and grafts; Z87.891 Personal history of nicotine dependence
CPT/HCPCS: 36415; 36600; 71045; 71046; 80048; 80053; 82803; 83880; 85025; 87040; 87804; 93005; 94640; 94664; 94669; 96361; 96365; 96375; 97110; 97116; 97161; 97530; 99221; 99284; J0456; J0696; J1940; J2930; J7050; J7512; J7611

== ENCOUNTER → 2019-10-31 15:13 | Outpatient (BNVA) | payer MEDICARE, OTHER, SELFPAY | PROVIDERS: Family Provider Family Medicine; PCP Family Medicine; Visit Provider Podiatrist Foot & Ankle Surgery | DX: I96 Gangrene, not elsewhere classified (principal); M20.12 Hallux valgus (acquired), left foot; M77.32 Calcaneal spur, left foot | CPT/HCPCS: 73630 ==

== ENCOUNTER 2020-12-18 08:22 | Inpatient (IN) | payer MEDICARE, OTHER, SELFPAY ==
[2020-12-18] VITALS (11 sets, daily range): BP systolic 109–140; BP diastolic 53–96; PULSE 79–105; RESP 15–18; TEMP 36.4–36.7; O2SAT 93–99; BMI 21.5
--- NOTE | 2020-12-18 08:50 | XR_ITS ---
WS: [id number] Portable AP upright chest, 12/18/2020 Clinical Data: weakness Comparison: None. Findings: No nodules, masses or effusions are seen. The heart is normal. The pulmonary vascularity is not increased. No pneumonia or pneumothorax is seen. The aortic arch shows calcification and tortuos ity. There is a calcified lymph node in the right tracheobronchial region. There is right pleural sarah ction. The diaphragms are flattened. XR/XR chest 1V portable [id number] Impression: Atherosclerosis and hyperinflation.
--- NOTE | 2020-12-18 08:51 | ECG_ITS ---
[facility] Test Date: 2020-12-18 Pat Name: Michelle Forman Department: Room: Gender: Female Pharmacy Helper: : 1935 Requested By: Justin Carlos Order Number: [id number] Cortez MD: Tra Muñoz M.D. Measurements Intervals [place] Rate: 92 P: 72 VT: 153 QRS: -11 QRSD: 71 T: 3 QT: 342 QTc: 423 Interpretive Statements SINUS RHYTHM WITH OCCASIONAL ECTOPIC PREMATURE COMPLEXES LOW QRS VOLTAGE IN PRECORDIAL LEADS [QRS DEFLECTION < 1.0 mV IN CHEST LEADS] POSSIBLE ANTERIOR MYOCARDIAL INFARCTION [30 ms Q WAVE IN V3/V4, OR R < 0.2 mV IN V4], PROBABLY OLD INFERIOR MYOCARDIAL INFARCTION [40+ ms Q WAVE AND/OR ST/T ABNORMALITY IN II/aVF], PROBABLY OLD Compared to ECG 06/18/2019 22:55:35 Low QRS voltage now present Myocardial infarct finding now present Sinus tachycardia no longer present Electronically Signed On 12-18-2020 20:30:02 CDT by Tra Muñoz M.D. [id number]
--- NOTE | 2020-12-18 08:56 | ED_ITS ---
HPI - General Adult General: Chief complaint: General Medical Stated complaint: weakness, hematuria Time Seen by Provider: 12/18/20 08:30 Source: patient and EMS Mode of arrival: EMS Limitations: other (Hard of hearing) History of Present Illness: HPI narrative: Patient reports increased weakness over the past 1 to 2 weeks. She states she has generalized fatigue. She states she noticed hematuria yesterday. She states she has chronic melena due to chronic iron use. She has a history of COPD and wears oxygen at 3 L/min by nasal cannula normally. She states she has a history of anemia and takes iron supplements for this. She is also on Plavix for history of peripheral vascular disease with stents in the lower extremities bilaterally. She reports use of Lasix, Protonix, metoprolol, diltiazem, potassium supplements, albuterol. She denies any coronary stents. MD complaint: Generalized weakness and fatigue Onset (ago): week(s) (1.5) Location: back (Mild lower lumbar spine pain) Radiation: non-radiation Severity: mild Quality: aching Pain Consistency: intermittent Relieving factors: none Exacerbating factors: none Associated symptoms: Reports malaise and other (Generalized weakness and fatigue); Deny chest pain, confusion, cough, diaphoresis, decreased appetite, dyspnea, fevers/chills, headache(s), nausea, rash, palpitations, seizures, short of breath, syncope or vomiting Review of Systems Const: Reports: fatigue and malaise; Denies: fever(s) or diaphoresis Eyes: Denies: change in vision ENMT: Denies: throat pain Card: Denies: chest pain, palpitations or syncope Resp: Denies: dyspnea, productive cough, non-productive cough or wheezing GI: Reports: other (Chronic melena); Denies: abdominal pain, nausea, vomiting, hematemesis or diarrhea : Reports: hematuria; Denies: flank pain Musc: Reports: back pain (Mild lower lumbar pain. No injury.); Denies: neck pain or extremity pain Skin/Breast: Denies: rash Neuro: Denies: headache(s), numbness in extremities, weakness in extremities or confusion Psych: Denies: anxiety Oresets/Lymph: Denies: enlarged lymph nodes [facility], [facility] ED PFSH: Medical History (Updated 12/18/20 @ 13:32 by Justin Crocker MD) Anemia COPD (chronic obstructive pulmonary disease) Hypertension Peripheral vascular disease Pneumonia Pulmonary embolism Surgical History H/O thyroidectomy H/O: hysterectomy Family History Other CAD (coronary artery disease) Cancer Hyperlipidemia Hypertension Denies family history of Diabetes Clotting disorder Dementia Psychiatric illness Chronic kidney disease (CKD) Suicide Anesthesia complication Bleeding disorder Family history of premature coronary artery disease Lung disease Stroke Social History Smoking and tobacco status: former smoker Quit status (tobacco): has quit using tobacco Alcohol intake: never Housing: Long Term Marital status: Current occupational status: retired Physical Exam Const: COMMON NORMALS: no acute distress, patient oriented x3, no limitations and well nourished GENERAL APPEARANCE: cooperative HENMT: COMMON NORMALS: normocephalic and atraumatic HEAD & SCALP: normocephalic and atraumatic FACE & SINUS: normal facial exam Eye: COMMON NORMALS: EOMs intact bilaterally Neck/C-Spine: COMMON NORMALS: full ROM, no lymphadenopathy, supple and no meningeal signs GENERAL: Yes normal visual inspection Lymph: LYMPHATIC: no lymphadenopathy noted Chest: COMMONS NORMALS: normal inspection of the chest and normal palpation of entire chest wall CHEST: No Ecchymosis present and No rash Resp: COMMON NORMALS: normal respiratory effort, No retractions and clear to auscultation bilaterally EFFORT & INSPECTION: No respiratory distress AUSCULTATION: clear to auscultation bilaterally Cardio: COMMON NORMALS: regular rate, regular rhythm and Peripheral pulses 2+ throughout JUGULAR VENOUS DISTENTION: no JVD RATE: regular rate RHYTHM: regular rhythm PERIPHERAL PULSES: Peripheral pulses 2+ throughout GI: COMMON NORMALS: Normal to inspection, nondistended, normoactive bowel sounds present and non-tender RECTAL EXAM: normal sphincter tone and Abnormal stool present (Melena, guaiac positive stool. Exam attended by nurse.) black stool : COMMON NORMALS: Yes no CVA tenderness BLADDER/KIDNEY EXAM: Yes no CVA tenderness and No CVA tenderness Back/Pelvis: COMMON NORMALS: no CVA tenderness GENERAL BACK: No CVA tenderness LUMBAR SPINE/LOWER BACK: Yes paraspinal muscle tenderness (Mild pain to the left paraspinal area. No rash noted. No injury noted. N) Extremity: COMMON NORMALS: normal to inspection, full ROM and capillary refill normal Neuro: COMMON NORMALS: patient oriented x3, CN's II-XII intact bilaterally, no focal motor deficits and no sensory deficits noted MENINGEAL SIGNS: Yes no meningeal signs Psych: COMMON NORMALS: mental status grossly normal and Normal thought process present THOUGHT PROCESS: Normal thought process present Skin: COMMON NORMALS: no rashes or lesions noted and no wounds GENERAL SKIN EXAM: no rashes or lesions noted Course Vital Signs: Vital signs: Vital Signs Temperature 97.6 F 12/18/20 08:35 Pulse Rate 94 12/18/20 13:45 Respiratory Rate 16 12/18/20 13:45 Blood Pressure 124/62 12/18/20 13:45 Pulse Oximetry 99 12/18/20 13:45 MDM - General Adult MDM Narrative: Medical decision making narrative: d/w dr. zavala. will admit to med/surg floor Lab Data: Attestation: I reviewed the patient's lab results. Labs: Lab Results 12/18/20 12/18/20 12/18/20 Range/Units 09:15 09:15 09:15 WBC 13.8 H (4.0-10.0) 10^3/ uL RBC 4.05 L (4.1-5.3) 10^6/u L Hgb 10.4 L (11.5-15.3) g/dL Hct 33.9 L (37.0-47.0) % MCV 83.7 (81-99) fL MCH 25.7 L (28.0-34.0) pg MCHC 30.7 (30.0-36.0) g/dL RDW 20.2 H (12.1-15.1) % Plt Count 544 H (130-400) 10^3/c mm MPV 10.4 (7.4-10.4) fL Neut % (Auto) 84.7 % Lymph % (Auto) 5.5 % Bladen % (Auto) 7.0 % Eos % (Auto) 0.1 % Baso % (Auto) 0.4 % Neut # (Auto) 11.67 H (1.8-7.7) 10^3/u L Lymph # (Auto) 0.8 (0.8-4.8) 10^3/u L Bladen # (Auto) 1.0 H (0.2-0.9) 10^3/u L Eos # (Auto) 0.0 (0.0-0.8) 10^3/u L Baso # (Auto) 0.1 (0.0-0.1) 10^3/u L Nucleated RBC % (a uto) 0 % Nucleated RBCs # 0.0 /100WBC APTT 24.7 (23.9-36.7) SECO NDS Sodium 134 L (136-145) mmol/L Potassium 4.0 (3.5-5.1) mmol/L Chloride 91 L (98-107) mmol/L Carbon Dioxide 34 H (22-29) mmol/L Anion Gap 13.0 (5-19) BUN 19 (8-23) mg/dL Creatinine 0.7 (0.5-0.9) mg/dL GFR Calculation Not Reportable Glucose 109 (65-115) mg/dL Calculated Osmolal ity 281 L (285-295) mOsm/k g Lactate (0.5-2.2) mmol/L Calcium 8.8 (8.5-10.5) mg/dL Total Bilirubin 3.5 H (0.15-1.2) mg/dL AST 205 H (0-32) U/L ALT 148 H (0-33) U/L Alkaline Phosphata se 659 H (35-105) IU/L Troponin T Baselin e (0-10) ng/L Troponin T 120 Min [place] (0-10) ng/L Delta Troponin T (0-10) ABS# Total Protein 5.0 L (6.6-8.7) g/dL Albumin 3.0 L (3.5-5.2) g/dL Globulin 2.0 (1.3-4.6) g/dL TSH 2.48 (0.27-4.20) uIU/ mL Urine Color (Yellow) Urine Appearance (CLEAR) Urine pH (5-7) Ur Specific Gravit y (1.005-1.030) Urine Protein (Negative) Urine Glucose (UA) (Normal) Urine Ketones (Negative) Urine Blood (Negative) Urine Nitrate (Negative) Urine Bilirubin (Negative) Urine Urobilinogen (Negative) mg/dL Ur Leukocyte Heidy ase (Negative) Urine RBC (0-2) /hpf Urine WBC (0-5) /hpf Ur Squamous Epith Cells (0-5) /hpf Amorphous Sediment Urine Bacteria (NONE) /hpf Blood Type Rho(D) Type Antibody Screen 12/18/20 12/18/20 12/18/20 Range/Units 09:15 09:15 09:20 WBC (4.0-10.0) 10^3/ uL RBC (4.1-5.3) 10^6/u L Hgb (11.5-15.3) g/dL Hct (37.0-47.0) % MCV (81-99) fL MCH (28.0-34.0) pg MCHC (30.0-36.0) g/dL RDW (12.1-15.1) % Plt Count (130-400) 10^3/c mm MPV (7.4-10.4) fL Neut % (Auto) % Lymph % (Auto) % Bladen % (Auto) % Eos % (Auto) % Baso % (Auto) % Neut # (Auto) (1.8-7.7) 10^3/u L Lymph # (Auto) (0.8-4.8) 10^3/u L Bladen # (Auto) (0.2-0.9) 10^3/u L Eos # (Auto) (0.0-0.8) 10^3/u L Baso # (Auto) (0.0-0.1) 10^3/u L Nucleated RBC % (a uto) % Nucleated RBCs # /100WBC APTT (23.9-36.7) SECO NDS Sodium (136-145) mmol/L Potassium (3.5-5.1) mmol/L Chloride (98-107) mmol/L Carbon Dioxide (22-29) mmol/L Anion Gap (5-19) BUN (8-23) mg/dL Creatinine (0.5-0.9) mg/dL GFR Calculation Glucose (65-115) mg/dL Calculated Osmolal ity (285-295) mOsm/k g Lactate 1.0 (0.5-2.2) mmol/L Calcium (8.5-10.5) mg/dL Total Bilirubin (0.15-1.2) mg/dL AST (0-32) U/L ALT (0-33) U/L Alkaline Phosphata se (35-105) IU/L Troponin T Baselin e 24 H (0-10) ng/L Troponin T 120 Min [place] (0-10) ng/L Delta Troponin T (0-10) ABS# Total Protein (6.6-8.7) g/dL Albumin (3.5-5.2) g/dL Globulin (1.3-4.6) g/dL TSH (0.27-4.20) uIU/ mL Urine Color Yellow (Yellow) Urine Appearance Clear (CLEAR) Urine pH 5 (5-7) Ur Specific Gravit y 1.015 (1.005-1.030) Urine Protein Trace (Negative) Urine Glucose (UA) Norm (Normal) Urine Ketones Negative (Negative) Urine Blood Neg (Negative) Urine Nitrate Negative (Negative) Urine Bilirubin 1+ H (Negative) Urine Urobilinogen 8 H (Negative) mg/dL Ur Leukocyte Heidy ase Negative (Negative) Urine RBC None (0-2) /hpf Urine WBC 0-4 H (0-5) /hpf Ur Squamous Epith Cells 0-4 H (0-5) /hpf Amorphous Sediment Not Reportable Urine Bacteria 2+ H (NONE) /hpf Blood Type Rho(D) Type Antibody Screen 12/18/20 12/18/20 Range/Units 09:49 11:14 WBC (4.0-10.0) 10^3/ uL RBC (4.1-5.3) 10^6/u L Hgb (11.5-15.3) g/dL Hct (37.0-47.0) % MCV (81-99) fL MCH (28.0-34.0) pg MCHC (30.0-36.0) g/dL RDW (12.1-15.1) % Plt Count (130-400) 10^3/c mm MPV (7.4-10.4) fL Neut % (Auto) % Lymph % (Auto) % Bladen % (Auto) % Eos % (Auto) % Baso % (Auto) % Neut # (Auto) (1.8-7.7) 10^3/u L Lymph # (Auto) (0.8-4.8) 10^3/u L Bladen # (Auto) (0.2-0.9) 10^3/u L Eos # (Auto) (0.0-0.8) 10^3/u L Baso # (Auto) (0.0-0.1) 10^3/u L Nucleated RBC % (a uto) % Nucleated RBCs # /100WBC APTT (23.9-36.7) SECO NDS Sodium (136-145) mmol/L Potassium (3.5-5.1) mmol/L Chloride (98-107) mmol/L Carbon Dioxide (22-29) mmol/L Anion Gap (5-19) BUN (8-23) mg/dL Creatinine (0.5-0.9) mg/dL GFR Calculation Glucose (65-115) mg/dL Calculated Osmolal ity (285-295) mOsm/k g Lactate (0.5-2.2) mmol/L Calcium (8.5-10.5) mg/dL Total Bilirubin (0.15-1.2) mg/dL AST (0-32) U/L ALT (0-33) U/L Alkaline Phosphata se (35-105) IU/L Troponin T Baselin e (0-10) ng/L Troponin T 120 Min [place] 24.11 H (0-10) ng/L Delta Troponin T 0.11 (0-10) ABS# Total Protein (6.6-8.7) g/dL Albumin (3.5-5.2) g/dL Globulin (1.3-4.6) g/dL TSH (0.27-4.20) uIU/ mL Urine Color (Yellow) Urine Appearance (CLEAR) Urine pH (5-7) Ur Specific Gravit y (1.005-1.030) Urine Protein (Negative) Urine Glucose (UA) (Normal) Urine Ketones (Negative) Urine Blood (Negative) Urine Nitrate (Negative) Urine Bilirubin (Negative) Urine Urobilinogen (Negative) mg/dL Ur Leukocyte Heidy ase (Negative) Urine RBC (0-2) /hpf Urine WBC (0-5) /hpf Ur Squamous Epith Cells (0-5) /hpf Amorphous Sediment Urine Bacteria (NONE) /hpf Blood Type A Positive Rho(D) Type Positive / 4+ Antibody Screen Negative Imaging Data^: CXR: Attestation: I personally reviewed and interpreted this imaging study as follows: My impression: Chest x-ray shows COPD pattern. Mild atelectasis in the left lower lobe. Radiologist's impression: [facility], [place] [address]ZCdc ReportSigned Patient: Michelle Forman #: [id number]: [id number]#:[id number]/Sex: 85 / FADM Date: 12/18/20Loc: ERRoom/Bed:Attending Dr: Ordering Provider/Ordering MD: Justin Crocker MD Date of Service: 12/18/20 Procedure(s): XR chest 1V portable [id number] Accession Number(s): [id number] Report Number: [id number] WS: [id number] Portable AP upright chest, 12/18/2020 Clinical Data: weakness Comparison: None. Findings: No nodules, masses or effusions are seen. The heart is normal. The pulmonary vascularity is not increased. No pneumonia or pneumothorax is seen. The aortic arch shows calcification and tortuosity. There is a calcified lymph node in the right tracheobronchial region. There is right pleural reaction. The diaphragms are flattened. XR/XR chest 1V portable [id number] Impression: Atherosclerosis and hyperinflation. Dictated By:Tiff Quezada MDSigned By:Tiff Quezada MDSigned Date/Time :12/18/20920 EKG Data^: EKG 1: Attestation: I personally reviewed and interpreted this EKG as follows: EKG interpretation date: 12/18/20 EKG interpretation time: 09:07 Prior EKG tracings: not available for review Interpretation: Normal sinus rhythm heart rate 92, mild left axis, occasional PACs. Low voltage consistent with COPD. Normal sinus rhythm. Normal TX interval. Normal P waves, normal T waves, nonspecific ST-T changes. Computer generated interpretation: Chest X-Ray 12/18/20 08:50 Impression: Atherosclerosis and hyperinflation. Discharge Plan Discharge Patient Disposition: Placed in Observation Clinical Impression: Acute UTI, Complaint of melena, Transaminitis Fatigue Qualifiers: Fatigue type: unspecified Qualified Code(s): R53.83 - Other fatigue COPD (chronic obstructive pulmonary disease) Qualifiers: COPD type: unspecified COPD Qualified Code(s): J44.9 - Chronic obstructive pulmonary disease, unspecified Coding Level of Care Code ED Night Baker for [facility] Fwd Exam Comprehensive
[2020-12-18 09:39] LABS: Basophils # 0.1 10^3/uL (0.0-0.1); Basophils % 0.4 %; Eosinophils % 0.1 %; Hematocrit 33.9 % (37.0-47.0); Hemoglobin 10.4 g/dL (11.5-15.3); Lymphocytes # 0.8 10^3/uL (0.8-4.8); Lymphocytes % 5.5 %; Mean Corpuscular HGB Conc 30.7 g/dL (30.0-36.0); Mean Corpuscular Hemoglobin 25.7 pg (28.0-34.0); Mean Corpuscular Volume 83.7 fL (81-99); Mean Platelet Volume 10.4 fL (7.4-10.4); Neutrophils # 11.67 10^3/uL (1.8-7.7); Neutrophils % 84.7 %; Nucleated Red Blood Cells % 0 %; Platelet Count 544 10^3/cmm (130-400); Red Blood Count 4.05 10^6/uL (4.1-5.3); Red Cell Distribution Width 20.2 % (12.1-15.1); White Blood Count 13.8 10^3/uL (4.0-10.0)
[2020-12-18 09:53] LABS: Partial Thromboplastin Time 24.7 SECONDS (23.9-36.7)
[2020-12-18 09:59] LABS: Alanine Aminotransferase 148 U/L (0-33); Alkaline Phosphatase 659 IU/L (35-105); Aspartate Amino Transferase 205 U/L (0-32); Blood Urea Nitrogen 19 mg/dL (8-23); Calcium 8.8 mg/dL (8.5-10.5); Carbon Dioxide 34 mmol/L (22-29); Chloride 91 mmol/L (98-107); Glucose 109 mg/dL (65-115); Osmolality Calculated 281 mOsm/kg (285-295); Sodium 134 mmol/L (136-145); Total Bilirubin 3.5 mg/dL (0.15-1.2); Troponin(5th) Baseline 24 ng/L (0-10)
[2020-12-18 10:16] LABS: Add Urine Microscopic? YES; Bilirubin Urine 1+ (Negative); Blood Urine Neg (Negative); Glucose Urine UA Norm (Normal); Ketones Urine Negative (Negative); Leukocyte Esterase Urine Negative (Negative); Nitrate Urine Negative (Negative); Protein Urine Trace (Negative); Specific Gravity, Urine 1.015 (1.005-1.030); Urine Appearance Clear (CLEAR); Urine Color Yellow (Yellow); Urobilinogen Urine 8 mg/dL (Negative); pH Urine 5 (5-7)
[2020-12-18 10:17] LABS: Add Urine Culture? No; Bacteria Urine 2+ /hpf; Squamous Epithelial Cell Urine 0-4 /hpf (0-5); WBC Urine 0-4 /hpf (0-5)
[2020-12-18 10:24] LABS: Thyroid Stimulating Hormone 2.48 uIU/mL (0.27-4.20)
--- NOTE | 2020-12-18 10:52 | ECG_ITS ---
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 Measurements Intervals [place] Rate: 91 P: 92 RI: 159 QRS: 7 QRSD: 78 T: 15 QT: 341 QTc: 420 Interpretive Statements SINUS RHYTHM LOW QRS VOLTAGE IN EXTREMITY LEADS [QRS DEFLECTION < 0.5 mV IN LIMB LEADS] PATTERN CONSISTENT WITH PULMONARY DISEASE Compared to ECG 12/18/2020 09:06:30 Myocardial infarct finding no longer present Electronically Signed On 12-18-2020 20:38:12 CDT by Tra Muñoz M.D. [email or web address] What Wearohiohealth grad[email or web address].Epuramat/store/OM/[id number]/[id number]
[2020-12-18] MEDS: cefTRIAXone 1,000 mg SDV 1000 MG IM (10:57)
[2020-12-18 11:47] LABS: Troponin 5 2HR 24.11 ng/L (0-10); Troponin 5 2HR Delta 0.11 ABS# (0-10)
--- NOTE | 2020-12-18 13:32 | US_ITS ---
WS: [id number] ULTRASOUND ABDOMEN LIMITED CLINICAL INFORMATION: Transaminitis COMPARISON: None. FINDINGS: Liver Size: Upper limits of normal Craniocaudal length: 15.6 cm. Echogenicity: Coarse Surface nodularity: None. Mass (size and location): None. Bile ducts Intrahepatic ducts: Mild dilatation Common bile duct diameter: 1.4 cm. Gallbladder Cholelithiasis. Gallbladder is contracted with wall thickening. Suggestion of mild gallbladder wall e kitty. Gallstones: Present Gallbladder sludge: None. Gallbladder wall thickenin.7 mm Pericholecystic fluid: None. Sonographic Malone sign: Absent. Pancreas Normal as visualized. Right kidney: Normal. Hydronephrosis: None. Size: 9.0 cm x 3.9 cm x 3.0 cm. Abdominal aorta and IVC Visualized portions are normal. Ascites: None. US/US gall bladder [id number] IMPRESSION: 1. Mild intrahepatic biliary ductal dilatation. Mild diffuse fatty infiltratio n of the liver. Liver size upper limits of normal. 2. Cholelithiasis with dilated common bile duct measuring 14 mm. This can be f urther evaluated with MRCP to evaluate for choledocholithiasis 3. Gallbladder is contracted. Wall thickening measuring 5.7 mm. No significant pericholecystic fluid. Recommend correlation for cholecystitis. 4. No hydronephrosis in right kidney.
--- NOTE | 2020-12-18 14:42 | W.ED.GENADLT ---
HPI - General Adult General: Chief complaint: General Medical Stated complaint: weakness, hematuria Time Seen by Provider: 12/18/20 08:30 Source: patient and EMS Mode of arrival: EMS Limitations: other (Hard of hearing) History of Present Illness: Location: back (Mild lower lumbar spine pain) Quality: aching Relieving factors: none Exacerbating factors: none PFSH ED PFSH: Medical History (Updated 12/18/20 @ 13:32 by Justin Crocker MD) Anemia COPD (chronic obstructive pulmonary disease) Hypertension Peripheral vascular disease Pneumonia Pulmonary embolism Surgical History H/O thyroidectomy H/O: hysterectomy Family History Other CAD (coronary artery disease) Cancer Hyperlipidemia Hypertension Denies family history of Diabetes Clotting disorder Dementia Psychiatric illness Chronic kidney disease (CKD) Suicide Anesthesia complication Bleeding disorder Family history of premature coronary artery disease Lung disease Stroke Social History Smoking and tobacco status: former smoker Quit status (tobacco): has quit using tobacco Alcohol intake: never Housing: [facility] Marital status: Current occupational status: retired Course Vital Signs: Vital signs: Vital Signs Temperature 97.6 F 12/18/20 08:35 Pulse Rate 79 12/18/20 14:35 Respiratory Rate 17 12/18/20 14:35 Blood Pressure 124/62 12/18/20 14:35 Pulse Oximetry 97 12/18/20 14:35 MDM - General Adult Lab Data: Labs: Lab Results 12/18/20 12/18/20 12/18/20 Range/Units 09:15 09:15 09:15 WBC 13.8 H (4.0-10.0) 10^3/ uL RBC 4.05 L (4.1-5.3) 10^6/u L Hgb 10.4 L (11.5-15.3) g/dL Hct 33.9 L (37.0-47.0) % MCV 83.7 (81-99) fL MCH 25.7 L (28.0-34.0) pg MCHC 30.7 (30.0-36.0) g/dL RDW 20.2 H (12.1-15.1) % Plt Count 544 H (130-400) 10^3/c mm MPV 10.4 (7.4-10.4) fL Neut % (Auto) 84.7 % Lymph % (Auto) 5.5 % [place] % (Auto) 7.0 % Eos % (Auto) 0.1 % Baso % (Auto) 0.4 % Neut # (Auto) 11.67 H (1.8-7.7) 10^3/u L Lymph # (Auto) 0.8 (0.8-4.8) 10^3/u L [place] # (Auto) 1.0 H (0.2-0.9) 10^3/u L Eos # (Auto) 0.0 (0.0-0.8) 10^3/u L Baso # (Auto) 0.1 (0.0-0.1) 10^3/u L Nucleated RBC % (a uto) 0 % Nucleated RBCs # 0.0 /100WBC APTT 24.7 (23.9-36.7) SECO NDS Sodium 134 L (136-145) mmol/L Potassium 4.0 (3.5-5.1) mmol/L Chloride 91 L (98-107) mmol/L Carbon Dioxide 34 H (22-29) mmol/L Anion Gap 13.0 (5-19) BUN 19 (8-23) mg/dL Creatinine 0.7 (0.5-0.9) mg/dL GFR Calculation Not Reportable Glucose 109 (65-115) mg/dL Calculated Osmolal ity 281 L (285-295) mOsm/k g Lactate (0.5-2.2) mmol/L Calcium 8.8 (8.5-10.5) mg/dL Total Bilirubin 3.5 H (0.15-1.2) mg/dL AST 205 H (0-32) U/L ALT 148 H (0-33) U/L Alkaline Phosphata se 659 H (35-105) IU/L Troponin T Baselin e (0-10) ng/L Troponin T 120 Min [place] (0-10) ng/L Delta Troponin T (0-10) ABS# Total Protein 5.0 L (6.6-8.7) g/dL Albumin 3.0 L (3.5-5.2) g/dL Globulin 2.0 (1.3-4.6) g/dL TSH 2.48 (0.27-4.20) uIU/ mL Urine Color (Yellow) Urine Appearance (CLEAR) Urine pH (5-7) Ur Specific Gravit y (1.005-1.030) Urine Protein (Negative) Urine Glucose (UA) (Normal) Urine Ketones (Negative) Urine Blood (Negative) Urine Nitrate (Negative) Urine Bilirubin (Negative) Urine Urobilinogen (Negative) mg/dL Ur Leukocyte Heidy ase (Negative) Urine RBC (0-2) /hpf Urine WBC (0-5) /hpf Ur Squamous Epith Cells (0-5) /hpf Amorphous Sediment Urine Bacteria (NONE) /hpf Blood Type Rho(D) Type Antibody Screen 12/18/20 12/18/20 12/18/20 Range/Units 09:15 09:15 09:20 WBC (4.0-10.0) 10^3/ uL RBC (4.1-5.3) 10^6/u L Hgb (11.5-15.3) g/dL Hct (37.0-47.0) % MCV (81-99) fL MCH (28.0-34.0) pg MCHC (30.0-36.0) g/dL RDW (12.1-15.1) % Plt Count (130-400) 10^3/c mm MPV (7.4-10.4) fL Neut % (Auto) % Lymph % (Auto) % [place] % (Auto) % Eos % (Auto) % Baso % (Auto) % Neut # (Auto) (1.8-7.7) 10^3/u L Lymph # (Auto) (0.8-4.8) 10^3/u L [place] # (Auto) (0.2-0.9) 10^3/u L Eos # (Auto) (0.0-0.8) 10^3/u L Baso # (Auto) (0.0-0.1) 10^3/u L Nucleated RBC % (a uto) % Nucleated RBCs # /100WBC APTT (23.9-36.7) SECO NDS Sodium (136-145) mmol/L Potassium (3.5-5.1) mmol/L Chloride (98-107) mmol/L Carbon Dioxide (22-29) mmol/L Anion Gap (5-19) BUN (8-23) mg/dL Creatinine (0.5-0.9) mg/dL GFR Calculation Glucose (65-115) mg/dL Calculated Osmolal ity (285-295) mOsm/k g Lactate 1.0 (0.5-2.2) mmol/L Calcium (8.5-10.5) mg/dL Total Bilirubin (0.15-1.2) mg/dL AST (0-32) U/L ALT (0-33) U/L Alkaline Phosphata se (35-105) IU/L Troponin T Baselin e 24 H (0-10) ng/L Troponin T 120 Min [place] (0-10) ng/L Delta Troponin T (0-10) ABS# Total Protein (6.6-8.7) g/dL Albumin (3.5-5.2) g/dL Globulin (1.3-4.6) g/dL TSH (0.27-4.20) uIU/ mL Urine Color Yellow (Yellow) Urine Appearance Clear (CLEAR) Urine pH 5 (5-7) Ur Specific Gravit y 1.015 (1.005-1.030) Urine Protein Trace (Negative) Urine Glucose (UA) Norm (Normal) Urine Ketones Negative (Negative) Urine Blood Neg (Negative) Urine Nitrate Negative (Negative) Urine Bilirubin 1+ H (Negative) Urine Urobilinogen 8 H (Negative) mg/dL Ur Leukocyte Heidy ase Negative (Negative) Urine RBC None (0-2) /hpf Urine WBC 0-4 H (0-5) /hpf Ur Squamous Epith Cells 0-4 H (0-5) /hpf Amorphous Sediment Not Reportable Urine Bacteria 2+ H (NONE) /hpf Blood Type Rho(D) Type Antibody Screen 12/18/20 12/18/20 Range/Units 09:49 11:14 WBC (4.0-10.0) 10^3/ uL RBC (4.1-5.3) 10^6/u L Hgb (11.5-15.3) g/dL Hct (37.0-47.0) % MCV (81-99) fL MCH (28.0-34.0) pg MCHC (30.0-36.0) g/dL RDW (12.1-15.1) % Plt Count (130-400) 10^3/c mm MPV (7.4-10.4) fL Neut % (Auto) % Lymph % (Auto) % [place] % (Auto) % Eos % (Auto) % Baso % (Auto) % Neut # (Auto) (1.8-7.7) 10^3/u L Lymph # (Auto) (0.8-4.8) 10^3/u L [place] # (Auto) (0.2-0.9) 10^3/u L Eos # (Auto) (0.0-0.8) 10^3/u L Baso # (Auto) (0.0-0.1) 10^3/u L Nucleated RBC % (a uto) % Nucleated RBCs # /100WBC APTT (23.9-36.7) SECO NDS Sodium (136-145) mmol/L Potassium (3.5-5.1) mmol/L Chloride (98-107) mmol/L Carbon Dioxide (22-29) mmol/L Anion Gap (5-19) BUN (8-23) mg/dL Creatinine (0.5-0.9) mg/dL GFR Calculation Glucose (65-115) mg/dL Calculated Osmolal ity (285-295) mOsm/k g Lactate (0.5-2.2) mmol/L Calcium (8.5-10.5) mg/dL Total Bilirubin (0.15-1.2) mg/dL AST (0-32) U/L ALT (0-33) U/L Alkaline Phosphata se (35-105) IU/L Troponin T Baselin e (0-10) ng/L Troponin T 120 Min [place] 24.11 H (0-10) ng/L Delta Troponin T 0.11 (0-10) ABS# Total Protein (6.6-8.7) g/dL Albumin (3.5-5.2) g/dL Globulin (1.3-4.6) g/dL TSH (0.27-4.20) uIU/ mL Urine Color (Yellow) Urine Appearance (CLEAR) Urine pH (5-7) Ur Specific Gravit y (1.005-1.030) Urine Protein (Negative) Urine Glucose (UA) (Normal) Urine Ketones (Negative) Urine Blood (Negative) Urine Nitrate (Negative) Urine Bilirubin (Negative) Urine Urobilinogen (Negative) mg/dL Ur Leukocyte Heidy ase (Negative) Urine RBC (0-2) /hpf Urine WBC (0-5) /hpf Ur Squamous Epith Cells (0-5) /hpf Amorphous Sediment Urine Bacteria (NONE) /hpf Blood Type A Positive Rho(D) Type Positive / 4+ Antibody Screen Negative EKG Data^: EKG 1: Attestation: I personally reviewed and interpreted this EKG as follows: EKG interpretation date: 12/18/20 EKG interpretation time: 10:40 Prior EKG tracings: not available for review Interpretation: Normal sinus rhythm with normal axis. Low voltage consistent with COPD, normal P waves, normal ST segment, normal T waves. Normal TX interval and normal QT interval. Impression normal sinus rhythm with low voltage consistent with COPD pattern Computer generated interpretation: Chest X-Ray 12/18/20 08:50 Impression: Atherosclerosis and hyperinflation. Gallbladder Ultrasound 12/18/20 13:32 IMPRESSION: 1. Mild intrahepatic biliary ductal dilatation. Mild diffuse fatty infiltration of the liver. Liver size upper limits of normal. 2. Cholelithiasis with dilated common bile duct measuring 14 mm. This can be further evaluated with MRCP to evaluate for choledocholithiasis 3. Gallbladder is contracted. Wall thickening measuring 5.7 mm. No significant pericholecystic fluid. Recommend correlation for cholecystitis. 4. No hydronephrosis in right kidney. Discharge Plan Discharge Patient Disposition: Placed in Observation Clinical Impression: Acute UTI, Complaint of melena, Transaminitis Fatigue Qualifiers: Fatigue type: unspecified Qualified Code(s): R53.83 - Other fatigue COPD (chronic obstructive pulmonary disease) Qualifiers: COPD type: unspecified COPD Qualified Code(s): J44.9 - Chronic obstructive pulmonary disease, unspecified Coding Level of Care Code ED Sterile Processing Manager for ronnell Mathur
--- NOTE | 2020-12-18 14:52 | ECG_ITS ---
[facility] Test Date: 2020-12-18 Pat Name: Michelle Forman Department: Room: Gender: Female Employment Program Representative: : 1935 Requested By: Justin Carlos Order Number: [id number] Reading MD: Tra Muñoz M.D. Measurements Intervals [place] Rate: 97 P: 86 MT: 151 QRS: 12 QRSD: 78 T: 54 QT: 334 QTc: 424 Interpretive Statements SINUS RHYTHM LOW QRS VOLTAGE IN EXTREMITY LEADS [QRS DEFLECTION < 0.5 mV IN LIMB LEADS] Compared to ECG 12/18/2020 10:38:10 No significant changes Electronically Signed On 12-18-2020 20:37:49 CDT by Tra Muñoz M.D. [id number]
--- NOTE | 2020-12-18 15:09 | ED_ITS ---
HPI - General Adult General: Chief complaint: General Medical Stated complaint: weakness, hematuria Time Seen by Provider: 12/18/20 08:30 Source: patient and EMS Mode of arrival: EMS Limitations: other (Hard of hearing) History of Present Illness: Location: back (Mild lower lumbar spine pain) Quality: aching Relieving factors: none Exacerbating factors: none PFSH ED PFSH: Medical History (Updated 12/18/20 @ 13:32 by Justin Crocker MD) Anemia COPD (chronic obstructive pulmonary disease) Hypertension Peripheral vascular disease Pneumonia Pulmonary embolism Surgical History H/O thyroidectomy H/O: hysterectomy Family History Other CAD (coronary artery disease) Cancer Hyperlipidemia Hypertension Denies family history of Diabetes Clotting disorder Dementia Psychiatric illness Chronic kidney disease (CKD) Suicide Anesthesia complication Bleeding disorder Family history of premature coronary artery disease Lung disease Stroke Social History Smoking and tobacco status: former smoker Quit status (tobacco): has quit using tobacco Alcohol intake: never Housing: [facility] Marital status: Current occupational status: retired Course Vital Signs: Vital signs: Vital Signs Temperature 97.6 F 12/18/20 08:35 Pulse Rate 79 12/18/20 14:35 Respiratory Rate 17 12/18/20 14:35 Blood Pressure 124/62 12/18/20 14:35 Pulse Oximetry 97 12/18/20 14:35 MDM - General Adult Lab Data: Labs: Lab Results 12/18/20 12/18/20 12/18/20 Range/Units 09:15 09:15 09:15 WBC 13.8 H (4.0-10.0) 10^3/ uL RBC 4.05 L (4.1-5.3) 10^6/u L Hgb 10.4 L (11.5-15.3) g/dL Hct 33.9 L (37.0-47.0) % MCV 83.7 (81-99) fL MCH 25.7 L (28.0-34.0) pg MCHC 30.7 (30.0-36.0) g/dL RDW 20.2 H (12.1-15.1) % Plt Count 544 H (130-400) 10^3/c mm MPV 10.4 (7.4-10.4) fL Neut % (Auto) 84.7 % Lymph % (Auto) 5.5 % [place] % (Auto) 7.0 % Eos % (Auto) 0.1 % Baso % (Auto) 0.4 % Neut # (Auto) 11.67 H (1.8-7.7) 10^3/u L Lymph # (Auto) 0.8 (0.8-4.8) 10^3/u L [place] # (Auto) 1.0 H (0.2-0.9) 10^3/u L Eos # (Auto) 0.0 (0.0-0.8) 10^3/u L Baso # (Auto) 0.1 (0.0-0.1) 10^3/u L Nucleated RBC % (a uto) 0 % Nucleated RBCs # 0.0 /100WBC APTT 24.7 (23.9-36.7) SECO NDS Sodium 134 L (136-145) mmol/L Potassium 4.0 (3.5-5.1) mmol/L Chloride 91 L (98-107) mmol/L Carbon Dioxide 34 H (22-29) mmol/L Anion Gap 13.0 (5-19) BUN 19 (8-23) mg/dL Creatinine 0.7 (0.5-0.9) mg/dL GFR Calculation Not Reportable Glucose 109 (65-115) mg/dL Calculated Osmolal ity 281 L (285-295) mOsm/k g Lactate (0.5-2.2) mmol/L Calcium 8.8 (8.5-10.5) mg/dL Total Bilirubin 3.5 H (0.15-1.2) mg/dL AST 205 H (0-32) U/L ALT 148 H (0-33) U/L Alkaline Phosphata se 659 H (35-105) IU/L Troponin T Baselin e (0-10) ng/L Troponin T 120 Min [place] (0-10) ng/L Delta Troponin T (0-10) ABS# Total Protein 5.0 L (6.6-8.7) g/dL Albumin 3.0 L (3.5-5.2) g/dL Globulin 2.0 (1.3-4.6) g/dL TSH 2.48 (0.27-4.20) uIU/ mL Urine Color (Yellow) Urine Appearance (CLEAR) Urine pH (5-7) Ur Specific Gravit y (1.005-1.030) Urine Protein (Negative) Urine Glucose (UA) (Normal) Urine Ketones (Negative) Urine Blood (Negative) Urine Nitrate (Negative) Urine Bilirubin (Negative) Urine Urobilinogen (Negative) mg/dL Ur Leukocyte Heidy ase (Negative) Urine RBC (0-2) /hpf Urine WBC (0-5) /hpf Ur Squamous Epith Cells (0-5) /hpf Amorphous Sediment Urine Bacteria (NONE) /hpf Blood Type Rho(D) Type Antibody Screen 12/18/20 12/18/20 12/18/20 Range/Units 09:15 09:15 09:20 WBC (4.0-10.0) 10^3/ uL RBC (4.1-5.3) 10^6/u L Hgb (11.5-15.3) g/dL Hct (37.0-47.0) % MCV (81-99) fL MCH (28.0-34.0) pg MCHC (30.0-36.0) g/dL RDW (12.1-15.1) % Plt Count (130-400) 10^3/c mm MPV (7.4-10.4) fL Neut % (Auto) % Lymph % (Auto) % [place] % (Auto) % Eos % (Auto) % Baso % (Auto) % Neut # (Auto) (1.8-7.7) 10^3/u L Lymph # (Auto) (0.8-4.8) 10^3/u L [place] # (Auto) (0.2-0.9) 10^3/u L Eos # (Auto) (0.0-0.8) 10^3/u L Baso # (Auto) (0.0-0.1) 10^3/u L Nucleated RBC % (a uto) % Nucleated RBCs # /100WBC APTT (23.9-36.7) SECO NDS Sodium (136-145) mmol/L Potassium (3.5-5.1) mmol/L Chloride (98-107) mmol/L Carbon Dioxide (22-29) mmol/L Anion Gap (5-19) BUN (8-23) mg/dL Creatinine (0.5-0.9) mg/dL GFR Calculation Glucose (65-115) mg/dL Calculated Osmolal ity (285-295) mOsm/k g Lactate 1.0 (0.5-2.2) mmol/L Calcium (8.5-10.5) mg/dL Total Bilirubin (0.15-1.2) mg/dL AST (0-32) U/L ALT (0-33) U/L Alkaline Phosphata se (35-105) IU/L Troponin T Baselin e 24 H (0-10) ng/L Troponin T 120 Min [place] (0-10) ng/L Delta Troponin T (0-10) ABS# Total Protein (6.6-8.7) g/dL Albumin (3.5-5.2) g/dL Globulin (1.3-4.6) g/dL TSH (0.27-4.20) uIU/ mL Urine Color Yellow (Yellow) Urine Appearance Clear (CLEAR) Urine pH 5 (5-7) Ur Specific Gravit y 1.015 (1.005-1.030) Urine Protein Trace (Negative) Urine Glucose (UA) Norm (Normal) Urine Ketones Negative (Negative) Urine Blood Neg (Negative) Urine Nitrate Negative (Negative) Urine Bilirubin 1+ H (Negative) Urine Urobilinogen 8 H (Negative) mg/dL Ur Leukocyte Heidy ase Negative (Negative) Urine RBC None (0-2) /hpf Urine WBC 0-4 H (0-5) /hpf Ur Squamous Epith Cells 0-4 H (0-5) /hpf Amorphous Sediment Not Reportable Urine Bacteria 2+ H (NONE) /hpf Blood Type Rho(D) Type Antibody Screen 12/18/20 12/18/20 Range/Units 09:49 11:14 WBC (4.0-10.0) 10^3/ uL RBC (4.1-5.3) 10^6/u L Hgb (11.5-15.3) g/dL Hct (37.0-47.0) % MCV (81-99) fL MCH (28.0-34.0) pg MCHC (30.0-36.0) g/dL RDW (12.1-15.1) % Plt Count (130-400) 10^3/c mm MPV (7.4-10.4) fL Neut % (Auto) % Lymph % (Auto) % [place] % (Auto) % Eos % (Auto) % Baso % (Auto) % Neut # (Auto) (1.8-7.7) 10^3/u L Lymph # (Auto) (0.8-4.8) 10^3/u L [place] # (Auto) (0.2-0.9) 10^3/u L Eos # (Auto) (0.0-0.8) 10^3/u L Baso # (Auto) (0.0-0.1) 10^3/u L Nucleated RBC % (a uto) % Nucleated RBCs # /100WBC APTT (23.9-36.7) SECO NDS Sodium (136-145) mmol/L Potassium (3.5-5.1) mmol/L Chloride (98-107) mmol/L Carbon Dioxide (22-29) mmol/L Anion Gap (5-19) BUN (8-23) mg/dL Creatinine (0.5-0.9) mg/dL GFR Calculation Glucose (65-115) mg/dL Calculated Osmolal ity (285-295) mOsm/k g Lactate (0.5-2.2) mmol/L Calcium (8.5-10.5) mg/dL Total Bilirubin (0.15-1.2) mg/dL AST (0-32) U/L ALT (0-33) U/L Alkaline Phosphata se (35-105) IU/L Troponin T Baselin e (0-10) ng/L Troponin T 120 Min [place] 24.11 H (0-10) ng/L Delta Troponin T 0.11 (0-10) ABS# Total Protein (6.6-8.7) g/dL Albumin (3.5-5.2) g/dL Globulin (1.3-4.6) g/dL TSH (0.27-4.20) uIU/ mL Urine Color (Yellow) Urine Appearance (CLEAR) Urine pH (5-7) Ur Specific Gravit y (1.005-1.030) Urine Protein (Negative) Urine Glucose (UA) (Normal) Urine Ketones (Negative) Urine Blood (Negative) Urine Nitrate (Negative) Urine Bilirubin (Negative) Urine Urobilinogen (Negative) mg/dL Ur Leukocyte Heidy ase (Negative) Urine RBC (0-2) /hpf Urine WBC (0-5) /hpf Ur Squamous Epith Cells (0-5) /hpf Amorphous Sediment Urine Bacteria (NONE) /hpf Blood Type A Positive Rho(D) Type Positive / 4+ Antibody Screen Negative EKG Data^: EKG 3: Attestation: I personally reviewed and interpreted this EKG as follows: EKG interpretation date: 12/18/20 EKG interpretation time: 15:05 Prior EKG tracings: available for review Interpretation: No acute change in EKG. Normal sinus rhythm with heart rate 97. Normal P waves, normal T waves, mild nonspecific ST-T changes. Normal axis. Low voltage consistent with COPD. This was compared to previous EKGs. Normal axis. Computer generated interpretation: Chest X-Ray 12/18/20 08:50 Impression: Atherosclerosis and hyperinflation. Gallbladder Ultrasound 12/18/20 13:32 IMPRESSION: 1. Mild intrahepatic biliary ductal dilatation. Mild diffuse fatty infiltration of the liver. Liver size upper limits of normal. 2. Cholelithiasis with dilated common bile duct measuring 14 mm. This can be further evaluated with MRCP to evaluate for choledocholithiasis 3. Gallbladder is contracted. Wall thickening measuring 5.7 mm. No significant pericholecystic fluid. Recommend correlation for cholecystitis. 4. No hydronephrosis in right kidney. Discharge Plan Discharge Patient Disposition: Placed in Observation Admit Provider: Nay Garrison Clinical Impression: Acute UTI, Complaint of melena, Transaminitis Fatigue Qualifiers: Fatigue type: unspecified Qualified Code(s): R53.83 - Other fatigue COPD (chronic obstructive pulmonary disease) Qualifiers: COPD type: unspecified COPD Qualified Code(s): J44.9 - Chronic obstructive pulmonary disease, unspecified Coding Level of Care Code ED Housekeeper Manager for [facility] Kevan
[2020-12-18 16:44] LABS: Troponin 5 6HR 19.79 ng/L (0-10)
[2020-12-18 16:45] LABS: Troponin 5 6HR Delta -4.21 ng/L (0-12)
--- NOTE | 2020-12-18 17:17 | PC.NURSE ---
Dr. Garrison at bedside.
--- NOTE | 2020-12-18 19:26 | PC.NURSE ---
Report to Kierra ADAMSON at this time.
--- NOTE | 2020-12-18 19:31 | PM.HP ---
Providers/Chief Complaint Admitting Physician: Nay Garrison MD Primary Care Provider: Cain Kuhn MD Chief Complaint: generalized weakness History of Present Illness Michelle Forman is a 85 year old female with past medical history as outlined below, to the ER today complaining of generalized weakness, and having noted blood in her urine . She reports that she saw red-colored urine in the toilet bowl. There were no clots. There is no report of melena or bleeding through the anus. There is no complaint of abdominal pain. On her UA in fact there are no RBCs noted. I suspect she is referring to high colored urine which may be a result of obstructive jaundice which is evident on her labs. Patient is a poor historian and keeps dwelling on the fact that she has a urinary tract infection. I am unable to get much history from her. She denies any recent fever. Fatigue present. Patient is clearly dehydrated. Lives at home with her elderly who has stroke. Her daughter who is at bedside is unable to offer any history additionally. Diagnostics in the ER notable for deranged LFTs which appear to be in an obstructive pattern. Elevated AST ALT alkaline phosphatase and T bili. Fractionated bilirubin has been requested. On ultrasound of the gallbladder that is performed today there is mild intrahepatic biliary dilatation noted along with mild diffuse fatty infiltration of the liver. Cholelithiasis with dilated CBD measuring 14 mm noted. MRCP has been recommended to evaluate for choledocholithiasis. Gallbladder wall is thickened at 5.7 mm, there is no significant pericholecystic fluid. Patient denies any complaints of abdominal pain, no tenderness in the right upper quadrant. CXR with changes of COPD. Review of Systems General: Reports: ROS unobtainable due to medical condition Medications/Allergies Home Medications Medication Instructions Recorded Confirmed Last Taken Type cholecalciferol (vitamin D3) 1,000 unit PO DAILY 06/19/19 12/18/20 12/17/20 History diltiazem HCl [Cartia XT] 120 mg PO DAILY 06/19/19 12/18/20 12/17/20 History ferrous sulfate 325 mg PO BID 06/19/19 12/18/20 12/17/20 History furosemide 40 mg PO BID 06/19/19 12/18/20 12/17/20 History metoprolol tartrate 25 mg PO BID 06/19/19 12/18/20 12/17/20 History pantoprazole 40 mg PO DAILY 06/19/19 12/18/20 12/17/20 History pentoxifylline 400 mg PO TID 06/19/19 12/18/20 12/17/20 History acetaminophen 1,000 mg PO Q6H PRN #30 tab 06/26/19 12/18/20 Unknown Rx cetirizine 10 mg PO DAILY #1 tab 06/26/19 12/18/20 12/17/20 Rx fluticasone propionate 2 spray NASAL DAILY #1 ml 06/26/19 12/18/20 Unknown Rx ipratropium-albuterol 3 ml INHALATION Q4H.RESPIRATORY 06/26/19 12/18/20 Unknown Rx #60 ml sodium chloride [Saline Mist] 1 spray NASAL PRN PRN #1 ml 06/26/19 12/18/20 Unknown Rx albuterol sulfate [Ventolin HFA] 2 puff INHALATION Q4H PRN 12/18/20 12/18/20 Unknown History clopidogrel 75 mg PO DAILY 12/18/20 12/18/20 12/17/20 History guaifenesin 1,200 mg PO DAILY 12/18/20 12/18/20 12/17/20 History potassium chloride 10 meq PO DAILY 12/18/20 12/18/20 12/17/20 History Allergies Allergy/AdvReac Type Severity Reaction Status Date / Time amoxicillin Allergy Unknown Verified 10/27/20 15:46 Sulfa (Sulfonamide Allergy ALGY-Swell Verified 10/27/20 15:46 Antibiotics) Lip/Tongue/Throat PFSH Acute PFSH: Medical History (Updated 12/18/20 @ 19:57 by Nay Garrison MD) Anemia COPD (chronic obstructive pulmonary disease) Hypertension Peripheral vascular disease Pneumonia Pulmonary embolism Surgical History H/O thyroidectomy H/O: hysterectomy Family History Other CAD (coronary artery disease) Cancer Hyperlipidemia Hypertension Denies family history of Diabetes Clotting disorder Dementia Psychiatric illness Chronic kidney disease (CKD) Suicide Anesthesia complication Bleeding disorder Family history of premature coronary artery disease Lung disease Stroke Social History Smoking and tobacco status: former smoker Quit status (tobacco): has quit using tobacco Alcohol intake: never Housing: Group Home Marital status: Current occupational status: retired Vitals/I&O/Wt Last Vital Signs Temp 97.7 F 12/18/20 17:19 Pulse 105 H 12/18/20 17:19 Resp 18 12/18/20 17:19 BP 123/72 12/18/20 17:19 Pulse Ox 98 12/18/20 17:19 Weight last 48 hrs Weight 53.524 kg Physical Exam Narrative: EXAM NARRATIVE: General: awake, alert, dehydrated, chronically ill appearing frail lady, no acute distress HEENT: PERRLA, pupils bilaterally equal and reactive, jaundice+ Chest: Normal vesicular breath sounds, no added sounds, equal good air entry bilaterally CVS: S1-S2 regular, no murmurs, no tachycardia, no gallops, no rubs Abdomen: Soft, nontender, no organomegaly, bowel sounds present Neuro: No focal deficits, no facial deformity, AO x3, power 5/5 in all limbs Extremities: no edema, cyanosis or clubbing Data : 12/18/20 09:15 12/18/20 09:15 Micro: Microbiology 12/18/20 10:02 Blood Culture - Preliminary Blood SPECIMEN COLLECTED 12/18/20 09:49 Blood Culture - Preliminary Blood SPECIMEN COLLECTED A&P Assessment and plan (1) Obstructive jaundice: Admit to med/surg elevated AST/ALT/ALP and T. bili check direct/indirect fractions US RUQ with dilated IHBD, dilated CBD, MRCP in am to evaluate for choledocholithiasis IVF d5NS @ 75cc/hr patient appears to be dehydrated lukeocytosis likely secondary to dehydration No overt signs of sepsis, monitor off abx for now received CTX x 1 in the ER Status: Acute (2) COPD (chronic obstructive pulmonary disease): not currently exacerbated duonebs q4h prn supplemental 02 Status: Acute Qualifiers: COPD type: unspecified COPD Qualified Code(s): J44.9 - Chronic obstructive pulmonary disease, unspecified (3) Peripheral arterial disease: continue pentoxifylline hold plavix in case MRCP reveals gross obstruction needing subsequent procedures Status: Acute (4) Anemia: chronic, monitor for now per ERP, guiac +, however on chronic iron supplementation Status: Acute Qualifiers: Anemia type: unspecified type Qualified Code(s): D64.9 - Anemia, unspecified (5) COPD (chronic obstructive pulmonary disease): Status: Acute Qualifiers: COPD type: unspecified COPD Qualified Code(s): J44.9 - Chronic obstructive pulmonary disease, unspecified Attestations Medical Necessity Statement*: anticipate >2midnight admission for evaluation and management of newly diagnosed obtrsuctive jaundice Coding Level of Care Code Acute Vector Control Specialist for [facility] Fwd Diagnoses Obstructive jaundice K83.1 COPD (chronic obstructive pulmonary disease) J44.9 COPD type: unspecified COPD Peripheral arterial disease I73.9 Anemia D64.9 Anemia type: unspecified type COPD (chronic obstructive pulmonary disease) J44.9 COPD type: unspecified COPD
[2020-12-18 20:39] LABS: Acetaminophen < 5.0 ug/mL (10-30); Salicylate < 0.3 mg/dL (3-10)
[2020-12-18] MEDS: dextrose 5%-sod chloride 0.9% 1,000 ML 75 ML IV (22:23)
[2020-12-18] MEDS: enoxaparin 30 mg/0.3 mL Syringe SUBCUT (22:23)
[2020-12-19] VITALS (8 sets, daily range): BP systolic 117–147; BP diastolic 52–78; PULSE 89–116; RESP 14–19; TEMP 36.4–36.8; O2SAT 93–100
[2020-12-19 05:31] LABS: Basophils % 0.4 %; Eosinophils # 0.1 10^3/uL (0.0-0.8); Eosinophils % 0.9 %; Hematocrit 31.5 % (37.0-47.0); Hemoglobin 9.7 g/dL (11.5-15.3); Lymphocytes # 0.7 10^3/uL (0.8-4.8); Lymphocytes % 7.4 %; Mean Corpuscular HGB Conc 30.8 g/dL (30.0-36.0); Mean Corpuscular Hemoglobin 25.7 pg (28.0-34.0); Mean Corpuscular Volume 83.6 fL (81-99); Mean Platelet Volume 10.2 fL (7.4-10.4); Monocytes # 0.7 10^3/uL (0.2-0.9); Monocytes % 7.4 %; Neutrophils # 7.39 10^3/uL (1.8-7.7); Nucleated Red Blood Cells % 0 %; Platelet Count 413 10^3/cmm (130-400); Red Blood Count 3.77 10^6/uL (4.1-5.3); Red Cell Distribution Width 20.8 % (12.1-15.1)
[2020-12-19 05:43] LABS: INR 1.04 (0.8-1.2)
[2020-12-19 05:44] LABS: Partial Thromboplastin Time 30.3 SECONDS (23.9-36.7)
[2020-12-19 05:46] LABS: Ammonia 26 umol/L (11-51)
[2020-12-19 05:47] LABS: Alanine Aminotransferase 131 U/L (0-33); Albumin Level 2.5 g/dL (3.5-5.2); Alkaline Phosphatase 603 IU/L (35-105); Aspartate Amino Transferase 187 U/L (0-32); Blood Urea Nitrogen 16 mg/dL (8-23); Calcium 8.6 mg/dL (8.5-10.5); Carbon Dioxide 32 mmol/L (22-29); Chloride 95 mmol/L (98-107); Globulin 2.4 g/dL (1.3-4.6); Glucose 118 mg/dL (65-115); Osmolality Calculated 282 mOsm/kg (285-295); Sodium 135 mmol/L (136-145); Total Bilirubin 4.8 mg/dL (0.15-1.2); Total Protein 4.9 g/dL (6.6-8.7)
[2020-12-19 05:49] LABS: Total Bilirubin 4.8 mg/dL (0.15-1.2)
--- NOTE | 2020-12-19 05:49 | PC.NURSE ---
SHIFT NOTE PATIENT RESTED IN BED THROUGHOUT THE SHIFT, DENIED PAIN, ABLE TO FOLLOW INSTRUCTIONS FOR POSITIONING, CONTINENT OF BLADDER X2, URINE DARK TEA COLOR WITH FOUL ODOR. EACH URINE OUTPUT APPROX 150 ML
[2020-12-19 05:50] LABS: Anion Gap 11.6 (5-19); Potassium 3.6 mmol/L (3.5-5.1)
[2020-12-19 06:12] LABS: Hepatitis A Antibody IgM Non-Reactive (Nonreactive); Hepatitis B Core AB, Total Non-Reactive (Nonreactive); Hepatitis B Surface AB 3.5 (11.5-1000); Hepatitis C Virus Antibody Non-Reactive (Nonreactive)
[2020-12-19 06:40] LABS: Hepatitis B Surface Antigen Non-Reactive (Nonreactive)
--- NOTE | 2020-12-19 07:43 | PC.RESP ---
PULMONARY REHAB INFORMATION SENT TO PATIENT.
[2020-12-19] MEDS: dextrose 5%-sod chloride 0.9% 1,000 ML 75 ML IV (12:15)
--- NOTE | 2020-12-19 12:20 | PC.CHAP ---
Pastoral Care Encounter/Spiritual Assessment Type of Contact [] Declined mortarman visit [] Patient/Family/Request visit [] Outpatient visit [] Follow-up visit [] Physician referral [] Code/Alert [] Routine visit [] Staff referral [] Actively dying [] Patient sleeping [] Family support [] [] Out of room [] Palliative care [] [xx] Receiving care in room [] Pre-surgical visit [] Trauma [] Long length of stay [] ICU visit [] Other: Relational/Emotional Strength [] Patient feels connected with others/family/visitors/staff [] Distress [] Loneliness/isolation [] Abandonment Spirituality of Patient [] Person of Sabiha [] Attends Zoroastrian of their Sabiha [] Believes in Prayer [] Reads Bible or Mu-Ism materials [] There are Spiritual issues to be addressed Nursing Agency Manager Interventions [] Prayer [] Active listening [] Non-anxious presence [] Spiritual/emotional support [] Crisis/trauma care [] Spiritual counseling [] Bereavement support [] Provided bereavement packet [] Provided Bible/devotional materials [] Provided toy/stuffed animal, coloring book to patient or family member [] Provided Communion [] Anointing/Ethel [] Salvation [] Completed spiritual assessment [] Other: Impact on Illness or Injury [] Angry [] Fearful [] Anxious [] Often cries [] Exhaustion [] Unable to work [] Unable to attend hinduism [] Unable to walk/stand [] Unable to read [] Unable to drive [] Unable to eat/drink [] Unable to sleep [] Unable to be with family [] Patient intubated [] Other: Summary Follow up needed Time spent with patient
--- NOTE | 2020-12-19 13:00 | PM.PN ---
Subjective Subjective: Interval history: T. bili trended up, afberile, hemodynamically stable, no acute events, MRCP this afternoon , better hydrated Medications: Reviewed: Yes Vitals/I&O/Wt Last Vital Signs Temp 97.9 F 12/19/20 12:00 Pulse 102 H 12/19/20 12:00 Resp 16 12/19/20 12:00 BP 130/78 12/19/20 12:00 Pulse Ox 97 12/19/20 12:00 12/19/20 12/19/20 12/19/20 06:59 14:59 22:59 Intake Total 1000 / 1000 Balance 1000 / 1000 Weight last 48 hrs Weight 53.524 kg Physical Exam Narrative: EXAM NARRATIVE: General: awake, alert, dehydrated, chronically ill appearing frail lady, no acute distress HEENT: PERRLA, pupils bilaterally equal and reactive, jaundice+ Chest: Normal vesicular breath sounds, no added sounds, equal good air entry bilaterally CVS: S1-S2 regular, no murmurs, no tachycardia, no gallops, no rubs Abdomen: Soft, nontender, no organomegaly, bowel sounds present Neuro: No focal deficits, no facial deformity, AO x3, power 5/5 in all limbs Extremities: no edema, cyanosis or clubbing Data : 12/19/20 05:10 12/19/20 05:10 Micro: Microbiology 12/18/20 10:02 Blood Culture - Preliminary Blood NEGATIVE TO DATE 12/18/20 09:49 Blood Culture - Preliminary Blood NEGATIVE TO DATE A&P Assessment and plan (1) Obstructive jaundice: elevated AST/ALT/ALP and T. bili mostly direct fraction US RUQ with dilated IHBD, dilated CBD, MRCP this afternoon IVF d5NS @ 75cc/hr to continue for now as remains NPO for test lukeocytosis likely secondary to dehydration , resolved today No overt signs of sepsis or cholangitis , monitor off abx for now received CTX x 1 in the ER Status: Acute (2) COPD (chronic obstructive pulmonary disease): not currently exacerbated duonebs q4h prn supplemental 02 Status: Acute Qualifiers: COPD type: unspecified COPD Qualified Code(s): J44.9 - Chronic obstructive pulmonary disease, unspecified (3) Peripheral arterial disease: continue pentoxifylline hold plavix in case MRCP reveals gross obstruction needing subsequent procedures Status: Acute (4) Anemia: chronic, monitor for now per ERP, g[place]onac +, however on chronic iron supplementation Status: Acute Qualifiers: Anemia type: unspecified type Qualified Code(s): D64.9 - Anemia, unspecified Attestations Medical Necessity Statement*: [facility] today Coding Level of Care Code Acute Wet Press Tender for g Fwd Diagnoses Obstructive jaundice K83.1 COPD (chronic obstructive pulmonary disease) J44.9 COPD type: unspecified COPD Peripheral arterial disease I73.9 Anemia D64.9 Anemia type: unspecified type
--- NOTE | 2020-12-19 14:30 | MR_ITS ---
WS: [id number] MRCP (MAGNETIC RESONANCE CHOLANGIOPANCREATOGRAPHY) HISTORY: dilated CBD, elevated transaminases COMPARISON: 12/19/2020 TECHNIQUE: Multiple sequences are performed to evaluate the intra and extrahepatic ducts. Quality of this examination is significantly limited by motion. Small bilateral pleural effusions and a small amount of ascites within the abdomen. There is inflamma tion at the pancreatic head and involving the body and tail of the pancreas. Not sure that I can adeq uately identify the common bile duct to exclude choledocholithiasis. There is a soft tissue inflammat ory collection with mixed but predominantly increased signal on the T2 sequences near the ann marie hepat is. Suspect this is probably an abnormal gallbladder with contraction and wall thickening. Central bi le ducts are dilated. Bilateral renal cysts. MR/MR MRCP [id number] IMPRESSION: 1. Quality of this examination is limited by motion artifact. 2. Cannot adequately visualize the entire common bile duct to exclude choledoc holithiasis or pancreatic head neoplasm. 3. There is mild central bile duct dilatation. 4. Soft tissue inflammatory mass in the region of the gallbladder fossa. Suspe ct this may be an abnormal gallbladder which is contracted with wall inflammati on. If recent CT of the abdomen has not been performed consider CT evaluation w ith IV and oral contrast. 5. Also pancreas appears edematous and mildly inflamed suggesting changes of a cute pancreatitis. 6. Small bilateral pleural effusions and a small amount of ascites.
--- NOTE | 2020-12-19 14:35 | PC.NURSE ---
Patient to MRI at this time.
--- NOTE | 2020-12-19 19:13 | PC.NURSE ---
Report to Kierra ADAMSON at bedside at this time.
[2020-12-19] MEDS: ipratropium-albuterol 3 mL Neb INHALATION (20:08)
[2020-12-19] MEDS: NON-FORMULARY MEDICATION (Pentoxifylline 400 mg tablet extended release) 400 EACH PO (21:02)
[2020-12-19] MEDS: metoprolol tartrate 25 mg Tablet PO (21:02)
[2020-12-19] MEDS: enoxaparin 30 mg/0.3 mL Syringe SUBCUT (21:03)
[2020-12-20] VITALS (7 sets, daily range): BP systolic 109–125; BP diastolic 53–68; PULSE 67–85; RESP 16–20; TEMP 36.5–37.1; O2SAT 94–99
[2020-12-20] MEDS: dextrose 5%-sod chloride 0.9% 1,000 ML 75 ML IV ×2 (03:42→16:41)
[2020-12-20] MEDS: dilTIAZem ER (24HR) 120 mg Capsule PO (08:33)
[2020-12-20] MEDS: guaiFENesin 600 mg Tablet 1200 MG PO (08:33)
[2020-12-20] MEDS: pantoprazole DR 40 mg Tablet PO (08:33)
[2020-12-20] MEDS: metoprolol tartrate 25 mg Tablet PO (08:36)
[2020-12-20 13:00] LABS: Alanine Aminotransferase 152 U/L (0-33); Albumin Level 2.6 g/dL (3.5-5.2); Alkaline Phosphatase 593 IU/L (35-105); Aspartate Amino Transferase 233 U/L (0-32); Blood Urea Nitrogen 12 mg/dL (8-23); Calcium 8.3 mg/dL (8.5-10.5); Carbon Dioxide 35 mmol/L (22-29); Chloride 98 mmol/L (98-107); Globulin 2.6 g/dL (1.3-4.6); Glucose 108 mg/dL (65-115); Osmolality Calculated 286 mOsm/kg (285-295); Sodium 138 mmol/L (136-145); Total Bilirubin 3.3 mg/dL (0.15-1.2); Total Protein 5.2 g/dL (6.6-8.7)
[2020-12-20 13:04] LABS: Anion Gap 8.2 (5-19); Potassium 3.2 mmol/L (3.5-5.1)
--- NOTE | 2020-12-20 13:34 | PC.PT ---
Patient had been up to b/s commode several times with nursing assist per nursing assist but refused to remain up ; as per nursing report . Patient slept through light stimulus, so didn't increase stimulus , as she had been up with nursing.
[2020-12-20] MEDS: NON-FORMULARY MEDICATION (Pentoxifylline 400 mg tablet extended release) 400 EACH PO (15:39)
[2020-12-20 16:27] LABS: Lipase 32 U/L (13-60)
--- NOTE | 2020-12-20 16:30 | PM.TDS ---
Transfer Summary Providers Date of Admission: 12/18/20 14:15 Date of Discharge: 12/20/20 Attending Provider at Admission: Nay Garrison MD Attending Provider at Transfer: Nay Garrison MD Primary Care Provider: Cain Kuhn MD Anticipated Date of Transfer: Anticipated date of transfer: 12/20/20 Receiving Facility & Provider: Receiving Provider: [] Receiving facility: [] Diagnoses at Discharge Discharge Diagnosis (1) Obstructive jaundice: Status: Acute (2) COPD (chronic obstructive pulmonary disease): Status: Acute Qualifiers: COPD type: unspecified COPD Qualified Code(s): J44.9 - Chronic obstructive pulmonary disease, unspecified (3) Peripheral arterial disease: Status: Acute (4) Anemia: Status: Acute Qualifiers: Anemia type: unspecified type Qualified Code(s): D64.9 - Anemia, unspecified Reason for Visit Reason for Visit: generalized weakness [id number] Hospital Course Hospital Course 85 year old female with past medical history of anemia, COPD (on supplemental 02 3lpm at home at baseline) Hypertension, Peripheral vascular disease (h/o femoral stenting, on Plavix chronically which is currently on hold), presented to the ER on 12/18/20 with c/o generalized weakness, fatigue, poor appetite and po intake for about 2-3 weeks and hematuria that she had recently noted. There were no RBC on her UA. W/up was notable for obstuctive jaundice with AST/ALT/ALP at 187/131/603 and T.bili at 4.8 with direct bili at 4.7. Troponin series negative. GB USG on 12/18 showed intrahepatic biliary ductal dilatation, Mild diffuse fatty infiltration of the liver, Cholelithiasis with dilated common bile duct measuring 14 mm, thickened GB withw all thickening 5.7mm, no pericholecytsic fluid. Negative storm sign on exam. f/up MRCP on 12/19 with motion artifact could not adequately visualize the entire common bile duct to exclude choledocholithiasis or pancreatic head neoplasm.There is mild central bile duct dilatation, Soft tissue inflammatory mass in the region of the gallbladder fossa. Suspect this may be an abnormal gallbladder which is contracted with wall inflammation.pancreas appears edematous and mildly inflamed suggesting changes of acute pancreatitis. Clinically patient did not have any c/o abdomen pain or tenderness. No carl, however FOBT +. HB stable at 10.4 (baseline 7.9-8.3). She remained afberile and hemodynamically stable during course of admission. No signs of cholangitis. Plavix on hold since 12/18 in anticipation of ERCP. Given above findings, patient will need ERCP and GI evaluation for obstructive jaundice. Neither of these services are available at [facility]. She has been accepted for transfer at [place], [place]. Daughter Janeen wells , ph no. [phone]. 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 TS Data Data Completed and Pending: Completed Studies During Hospitalization Category Date Time Status XR chest 1V ann marie ble [id number] Urgent Exams 12/18/20 08:50 Completed MR MRCP [id number] Rou azul MRI 12/19/20 14:30 Completed US gall bladder 7 [id number] Urgent Ultrasound 12/18/20 13:32 Completed Pending at discharge Category Date Time Status Blood Culture Sta t Lab 12/18/20 10:02 Results Labs from last 24 hours 12/20/20 12/20/20 12:32 12:32 Sodium 138 Potassium 3.2 L Chloride 98 Carbon Dioxide 35 H Anion Gap 8.2 BUN 12 Creatinine 0.4 L GFR Calculation Not Reportable Glucose 108 Calculated Osmolal ity 286 Calcium 8.3 L Total Bilirubin 3.3 H AST 233 H ALT 152 H Alkaline Phosphata se 593 H Total Protein 5.2 L Albumin 2.6 L Globulin 2.6 Lipase 32 Addt'l Data from Hospital Stay: Laboratory Results WBC 9.0 10^3/uL (4.0- 10.0) 12/19/20 05:10 RBC 3.77 10^6/uL (4.1 -5.3) L 12/19/20 05:10 Hgb 9.7 g/dL (11.5-15 .3) L 12/19/20 05:10 Hct 31.5 % (37.0-47.0 ) L 12/19/20 05:10 MCV 83.6 fL (81-99) 12/19/20 05:10 MCH 25.7 pg (28.0-34. 0) L 12/19/20 05:10 MCHC 30.8 g/dL (30.0-3 6.0) 12/19/20 05:10 RDW 20.8 % (12.1-15.1 ) H 12/19/20 05:10 Plt Count 413 10^3/cmm (130 -400) H 12/19/20 05:10 MPV 10.2 fL (7.4-10.4 ) 12/19/20 05:10 Neut % (Auto) 82.0 % 12/19/20 05:10 Lymph % (Auto) 7.4 % 12/19/20 05:10 Kimball % (Auto) 7.4 % 12/19/20 05:10 Eos % (Auto) 0.9 % 12/19/20 05:10 Baso % (Auto) 0.4 % 12/19/20 05:10 Neut # (Auto) 7.39 10^3/uL (1.8 -7.7) 12/19/20 05:10 Lymph # (Auto) 0.7 10^3/uL (0.8- 4.8) L 12/19/20 05:10 [place]ball # (Auto) 0.7 10^3/uL (0.2- 0.9) 12/19/20 05:10 Eos # (Auto) 0.1 10^3/uL (0.0- 0.8) 12/19/20 05:10 Baso # (Auto) 0.0 10^3/uL (0.0- 0.1) 12/19/20 05:10 Nucleated RBC % (a uto) 0 % 12/19/20 05:10 Nucleated RBCs # 0.0 /100WBC 12/19/20 05:10 PT 14.00 SECONDS (12 .1-14.9) 12/19/20 05:10 INR 1.04 (0.8-1.2) 12/19/20 05:10 APTT 30.3 SECONDS (23. 9-36.7) 12/19/20 05:10 Sodium 138 mmol/L (136-1 45) 12/20/20 12:32 Potassium 3.2 mmol/L (3.5-5 .1) L 12/20/20 12:32 Chloride 98 mmol/L (98-107 ) 12/20/20 12:32 Carbon Dioxide 35 mmol/L (22-29) H 12/20/20 12:32 Anion Gap 8.2 (5-19) 12/20/20 12:32 BUN 12 mg/dL (8-23) 12/20/20 12:32 Creatinine 0.4 mg/dL (0.5-0. 9) L 12/20/20 12:32 GFR Calculation Not Reportable 12/20/20 12:32 Glucose 108 mg/dL (65-115 ) 12/20/20 12:32 Calculated Osmolal ity 286 mOsm/kg (285- 295) 12/20/20 12:32 Lactate 1.0 mmol/L (0.5-2 .2) 12/18/20 09:15 Calcium 8.3 mg/dL (8.5-10 .5) L 12/20/20 12:32 Total Bilirubin 3.3 mg/dL (0.15-1 .2) H 12/20/20 12:32 Direct Bilirubin 4.70 mg/dL (0.00- 0.30) H 12/19/20 05:10 Indirect Bilirubin 0.10 12/19/20 05:10 AST 233 U/L (0-32) H 12/20/20 12:32 ALT 152 U/L (0-33) H 12/20/20 12:32 Alkaline Phosphata se 593 IU/L (35-105) H 12/20/20 12:32 Ammonia 26 umol/L (11-51) 12/19/20 05:10 Troponin T Baselin e 24 ng/L (0-10) H 12/18/20 09:15 Troponin T 120 Min marsha 24.11 ng/L (0-10) H 12/18/20 11:14 Delta Troponin T 0.11 ABS# (0-10) 12/18/20 11:14 Troponin T Hi Sens 6Hr 19.79 ng/L (0-10) H 12/18/20 15:38 Troponin T Hi Sens 6Hr Delta -4.21 ng/L (0-12) L 12/18/20 15:38 Total Protein 5.2 g/dL (6.6-8.7 ) L 12/20/20 12:32 Albumin 2.6 g/dL (3.5-5.2 ) L 12/20/20 12:32 Globulin 2.6 g/dL (1.3-4.6 ) 12/20/20 12:32 Lipase 32 U/L (13-60) 12/20/20 12:32 TSH 2.48 uIU/mL (0.27 -4.20) 12/18/20 09:15 Urine Color Yellow (Yellow) 12/18/20 09:20 Urine Appearance Clear (CLEAR) 12/18/20 09:20 Urine pH 5 (5-7) 12/18/20 09:20 Ur Specific Gravit y 1.015 (1.005-1.0 30) 12/18/20 09:20 Urine Protein Trace (Negative) 12/18/20 09:20 Urine Glucose (UA) Norm (Normal) 12/18/20 09:20 Urine Ketones Negative (Negati ve) 12/18/20 09:20 Urine Blood Neg (Negative) 12/18/20 09:20 Urine Nitrate Negative (Negati ve) 12/18/20 09:20 Urine Bilirubin 1+ (Negative) H 12/18/20 09:20 Urine Urobilinogen 8 mg/dL (Negative ) H 12/18/20 09:20 Ur Leukocyte Heidy ase Negative (Negati ve) 12/18/20 09:20 Urine RBC None /hpf (0-2) 12/18/20 09:20 Urine WBC 0-4 /hpf (0-5) H 12/18/20 09:20 Ur Squamous Epith Cells 0-4 /hpf (0-5) H 12/18/20 09:20 Amorphous Sediment Not Reportable 12/18/20 09:20 Urine Bacteria 2+ /hpf (NONE) H 12/18/20 09:20 Salicylates < 0.3 mg/dL (3-10 ) L 12/18/20 15:38 Acetaminophen < 5.0 ug/mL (10-3 0) L 12/18/20 15:38 Hepatitis A IgM Ab Non-reactive (No nreactive) 12/19/20 05:10 Hep Bs Antigen Non-reactive (No nreactive) 12/19/20 05:10 Hep Bs Antibody 3.5 (11.5-1000) L 12/19/20 05:10 Hep B Core Total A b Non-reactive (No nreactive) 12/19/20 05:10 Hepatitis C Antibo dy Non-reactive (No nreactive) 12/19/20 05:10 Blood Type A Positive 12/18/20 09:49 Rho(D) Type Positive / 4+ 12/18/20 09:49 Antibody Screen Negative 12/18/20 09:49 Pertinent Labs During Stay 12/18/20 12/18/20 12/20/20 09:15 15:38 12:32 Lipase 32 TSH 2.48 Salicylates < 0.3 L Acetaminophen < 5.0 L 12/19/2020 Total Bilirubin 4.8 H 0.15-1.2 mg/dL AST/SGOT 187 H 0-32 U/L ALT/SGPT 131 H 0-33 U/L Total Protein 4.9 L 6.6-8.7 g/dL Alb 2.5 L 3.5-5.2 g/dL Glob 2.4 1.3-4.6 g/dL Alk Phos 603 H 35-105 IU/L Impressions 12/18/2020 Total Bilirubin 3.5 H 0.15-1.2 mg/dL AST/SGOT 205 H 0-32 U/L ALT/SGPT 148 H 0-33 U/L Total Protein 5.0 L 6.6-8.7 g/dL Alb 3.0 L 3.5-5.2 g/dL Glob 2.0 1.3-4.6 g/dL Alk Phos 659 H 35-105 IU/L Chest X-Ray 12/18/20 08:50 Impression: Atherosclerosis and hyperinflation. Gallbladder Ultrasound 12/18/20 13:32 IMPRESSION: 1. Mild intrahepatic biliary ductal dilatation. Mild diffuse fatty infiltration of the liver. Liver size upper limits of normal. 2. Cholelithiasis with dilated common bile duct measuring 14 mm. This can be further evaluated with MRCP to evaluate for choledocholithiasis 3. Gallbladder is contracted. Wall thickening measuring 5.7 mm. No significant pericholecystic fluid. Recommend correlation for cholecystitis. 4. No hydronephrosis in right kidney. Cholangiopancreatography MRI 12/19/20 14:30 IMPRESSION: 1. Quality of this examination is limited by motion artifact. 2. Cannot adequately visualize the entire common bile duct to exclude choledocholithiasis or pancreatic head neoplasm. 3. There is mild central bile duct dilatation. 4. Soft tissue inflammatory mass in the region of the gallbladder fossa. Suspect this may be an abnormal gallbladder which is contracted with wall inflammation. If recent CT of the abdomen has not been performed consider CT evaluation with IV and oral contrast. 5. Also pancreas appears edematous and mildly inflamed suggesting changes of acute pancreatitis. 6. Small bilateral pleural effusions and a small amount of ascites. Vitals: Last Vital Signs Temp 98.8 F 12/20/20 15:50 Pulse 74 12/20/20 15:50 Resp 17 12/20/20 15:50 BP 125/68 12/20/20 15:50 Pulse Ox 97 12/20/20 15:50 TS Medications Medications Home Medications cholecalciferol (vitamin D3) 1,000 unit PO DAILY 06/19/19 [History Confirmed 12/18/20] diltiazem HCl [Cartia XT] 120 mg PO DAILY 06/19/19 [History Confirmed 12/18/20] ferrous sulfate 325 mg PO BID 06/19/19 [History Confirmed 12/18/20] furosemide 40 mg PO BID 06/19/19 [History Confirmed 12/18/20] metoprolol tartrate 25 mg PO BID 06/19/19 [History Confirmed 12/18/20] pantoprazole 40 mg PO DAILY 06/19/19 [History Confirmed 12/18/20] pentoxifylline 400 mg PO TID 06/19/19 [History Confirmed 12/18/20] acetaminophen 1,000 mg PO Q6H PRN #30 tab 06/26/19 [Rx Confirmed 12/18/20] cetirizine 10 mg PO DAILY #1 tab 06/26/19 [Rx Confirmed 12/18/20] fluticasone propionate 2 spray NASAL DAILY #1 ml 06/26/19 [Rx Confirmed 12/18/20] ipratropium-albuterol 3 ml INHALATION Q4H.RESPIRATORY #60 ml 06/26/19 [Rx Confirmed 12/18/20] sodium chloride [Saline Mist] 1 spray NASAL PRN PRN #1 ml 06/26/19 [Rx Confirmed 12/18/20] albuterol sulfate [Ventolin HFA] 2 puff INHALATION Q4H PRN 12/18/20 [History Confirmed 12/18/20] clopidogrel 75 mg PO DAILY 12/18/20 [History Confirmed 12/18/20] guaifenesin 1,200 mg PO DAILY 12/18/20 [History Confirmed 12/18/20] potassium chloride 10 meq PO DAILY 12/18/20 [History Confirmed 12/18/20] Active Medications Albuterol/Ipratropium (Ipratropium-Albuterol 3 Ml Neb) 3 ml INHALATION Q4H.RESPIRATORY PRN PRN Reason: SHORTNESS OF BREATH Last Admin: 12/19/20 20:08 Dose: 3 ml Documented by: Diltiazem HCl (Diltiazem Er (24hr) 120 Mg Capsule) 120 mg PO DAILY [facility] Last Admin: 12/20/20 08:33 Dose: 120 mg Documented by: Enoxaparin Sodium (Enoxaparin 30 Mg/0.3 Ml Syringe) 30 mg SUBCUT Q24H [facility] Last Admin: 12/19/20 21:03 Dose: 30 mg Documented by: Guaifenesin (Guaifenesin 600 Mg Tablet) 1,200 mg PO DAILY [facility] Last Admin: 12/20/20 08:33 Dose: 1,200 mg Documented by: Dextrose/Sodium Chloride (Dextrose 5%-Sod Chloride 0.9%) 1,000 mls @ 75 mls/hr IV .[id number] [facility] Last Admin: 12/20/20 03:42 Dose: 75 mls/hr Documented by: Metoprolol Tartrate (Metoprolol Tartrate 25 Mg Tablet) 25 mg PO BID@0900,2100 [facility] Last Admin: 12/20/20 08:36 Dose: 25 mg Documented by: Non-Formulary Medication (Pentoxifylline) 400 mg PO TID [facility] Last Admin: 12/20/20 15:39 Dose: 400 mg Documented by: Ondansetron HCl (Ondansetron 2 Mg/Ml Sdv 2 Ml) 4 mg IVP Q8H PRN PRN Reason: vomiting, or N/V if npo Pantoprazole Sodium (Pantoprazole Dr 40 Mg Tablet) 40 mg PO DAILY [facility] Last Admin: 12/20/20 08:33 Dose: 40 mg Documented by: Sodium Chloride (Saline Nasal [place] 44ml Btl) 1 spray NASAL PRN PRN PRN Reason: Dryness Discharge Plan Discharge Patient Disposition: Xfer Other Condition: Stable Prescriptions: No Action furosemide 40 mg tablet 40 mg PO BID RF: 0 pentoxifylline 400 mg tablet extended release 400 mg PO TID RF: 0 pantoprazole 40 mg tablet,delayed release (DR/EC) 40 mg PO DAILY RF: 0 diltiazem HCl [Cartia XT] 120 mg capsule,extended release 24hr 120 mg PO DAILY RF: 0 metoprolol tartrate 25 mg tablet 25 mg PO BID RF: 0 ferrous sulfate 325 mg (65 mg iron) Tablet 325 mg PO BID RF: 0 cholecalciferol (vitamin D3) 1,000 unit Capsule 1,000 unit PO DAILY RF: 0 ipratropium-albuterol 0.5 mg-3 mg(2.5 mg base)/3 mL Solution For Nebulization 3 ml inhalation Q4H.RESPIRATORY Qty: 60 RF: 0 cetirizine 10 mg Tablet 10 mg PO DAILY Qty: 1 RF: 0 acetaminophen 500 mg Tablet 1,000 mg PO Q6H PRN (Reason: Mild Pain Or Increase Temp) Qty: 30 RF: 0 fluticasone propionate 50 mcg/actuation [place],Suspension 2 spray nasal DAILY Qty: 1 RF: 0 sodium chloride [Saline Mist] 0.65 % Aerosol,[place] 1 spray nasal PRN PRN (Reason: Dryness) Qty: 1 RF: 0 potassium chloride 10 mEq capsule, extended release 10 meq PO DAILY RF: 0 clopidogrel 75 mg tablet 75 mg PO DAILY RF: 0 Ventolin HFA 90 mcg/actuation HFA aerosol inhaler 2 puff INHALATION Q4H PRN (Reason: Shortness Of Breath) RF: 0 guaifenesin 600 mg tablet extended release 12hr 1,200 mg PO DAILY RF: 0 Discharge Orders: Transfer Out of Facility (Order); Ordered 12/20/20 Ordered By: Nay Garrison Referrals: Cain Kuhn MD [Primary Care Provider] - Transfer Attestations Time Spent in Transfer Care*: greater than 30 min Quality Metrics Clinical Quality Measures: During this hospital stay, did patient experience: None Coding Level of Care Code Acute Photo Equipment Technician for g Fwd Diagnoses Obstructive jaundice K83.1 COPD (chronic obstructive pulmonary disease) J44.9 COPD type: unspecified COPD Peripheral arterial disease I73.9 Anemia D64.9 Anemia type: unspecified type
[2020-12-20] MEDS: potassium chloride ER 20 mEq Tablet 40 MEQ PO (16:41)
--- NOTE | 2020-12-20 16:54 | PC.NURSE ---
Report called to Katie Herbert RN at [facility] at this time. Patient also signed transfer form at this time.
--- NOTE | 2020-12-20 18:25 | PC.NURSE ---
Patient assisted to EMS cot at this time. Patient to be transported to [facility] by EMS at this time. Patient is A&Ox3. Respirations evena nd non-labored on 2 liters nasal cannula.
== END 2020-12-20 18:27 | disposition short-term general hospital (02) | DRG 444 ==
LOC: ER 14:14 → MEDSURG 15:49
PROVIDERS: Admitting Provider Student in an Organized Health Care Education/Training Program; Emergency Provider Family Medicine; PCP Family Medicine; Visit Provider Student in an Organized Health Care Education/Training Program
DX: K83.1 Obstruction of bile duct (principal); K85.90 Acute pancreatitis without necrosis or infection, unspecified; J44.9 Chronic obstructive pulmonary disease, unspecified; I73.9 Peripheral vascular disease, unspecified; Z95.820 Peripheral vascular angioplasty status with implants and grafts; D64.9 Anemia, unspecified; Z99.81 Dependence on supplemental oxygen; I10 Essential (primary) hypertension; K76.0 Fatty (change of) liver, not elsewhere classified; Z79.02 Long term (current) use of antithrombotics/antiplatelets; Z79.51 Long term (current) use of inhaled steroids; Z87.01 Personal history of pneumonia (recurrent); Z86.711 Personal history of pulmonary embolism; Z87.891 Personal history of nicotine dependence
CPT/HCPCS: 36415; 71045; 74181; 76705; 80053; 80307; 81001; 82140; 82247; 82248; 82274; 83605; 83690; 84443; 84484; 85025; 85610; 85730; 86705; 86706; 86709; 86803; 86850; 86900; 87040; 87340; 93005; 94640; 96372; 97161; 97530; 99285; J0696; J1650